=== PATIENT | female | born 1950 | race African-American/Black ===

== ENCOUNTER 2024-03-22 18:38 | Inpatient (IN) | payer MEDICARE, OTHER ==
[2024-03-22 20:54] LABS: BASO % 0.6 % (0-2.0); EOS % 2.3 % (0-4.5); HEMATOCRIT 24.1 % (32.4-45.2); HEMOGLOBIN 7.9 GM/dL (10.7-15.3); MCH 26.8 pg (25.7-33.7); MCHC 32.6 g/dl (32.0-36.0); MEAN CELL VOLUME 82.3 fl (80-96); MEAN PLT VOLUME 7.4 fl (7.5-11.1); NEUT % 75.1 % (42.8-82.8); PLATELET COUNT 531 10^3/uL (134-434); RBC 2.93 M/mm3 (3.60-5.2); RDW 18.4 % (11.6-15.6); WHITE BLOOD COUNT 9.9 K/mm3 (4.0-10.0)
[2024-03-22 21:03] LABS: INR 1.08 (0.83-1.09); PROTHROMBIN TIME (PATIENT) 12.4 SEC (9.7-13.0)
[2024-03-22 21:13] LABS: BLOOD UREA NITROGEN 69.1 mg/dL (7-18); CALCIUM 9.6 mg/dL (8.5-10.1)
[2024-03-22 21:14] LABS: ALBUMIN 1.4 g/dl (3.4-5.0); MAGNESIUM 2.4 mg/dL (1.8-2.4)
[2024-03-22 21:17] LABS: CREATININE 2.1 mg/dL (0.55-1.3)
[2024-03-22 21:18] LABS: BILIRUBIN,TOTAL 0.3 mg/dL (0.2-1); TOT PROT 6.2 g/dl (6.4-8.2)
[2024-03-22 22:21] LABS: EPI CELLS 16 /uL (0-25.1); HYALINE CASTS 1 /uL (0-3.1); URINE APPEARANCE TURBID; URINE BACTERIA 2701 /uL (0-1359); URINE BILIRUBIN NEGATIVE (NEGATIVE); URINE COLOR DK YELLOW; URINE GLUCOSE (UA) NEGATIVE (NEGATIVE); URINE KETONE NEGATIVE (NEGATIVE); URINE LEUK ESTERASE 3+ (NEGATIVE); URINE NITRITE NEGATIVE (NEGATIVE); URINE PROTEIN 1+ (NEGATIVE); URINE RBC 65 /uL (0-23.9); URINE UROBILINOGEN 0.2 mg/dL (0.2-1.0); URINE WBC 7217 /uL (0-25.8)
[2024-03-22 23:43] LABS: URINE CRYSTALS MODERATE /hpf; YEAST NONE SEEN (NEGATIVE)
[2024-03-23 06:17] LABS: BASO % 0.4 % (0-2.0); EOS % 2.1 % (0-4.5); HEMATOCRIT 25.1 % (32.4-45.2); HEMOGLOBIN 7.9 GM/dL (10.7-15.3); LYMPH % 10.2 % (8-40); MCH 25.7 pg (25.7-33.7); MCHC 31.4 g/dl (32.0-36.0); MEAN PLT VOLUME 7.6 fl (7.5-11.1); MONO % 10.8 % (3.8-10.2); NEUT % 76.5 % (42.8-82.8); PLATELET COUNT 597 10^3/uL (134-434); RBC 3.06 M/mm3 (3.60-5.2); RDW 18.3 % (11.6-15.6); WHITE BLOOD COUNT 11.2 K/mm3 (4.0-10.0)
[2024-03-23] MEDS ORDERED: ALBUTEROL SO4 2.5/IPRATROPIUM 0.5 INH SOL 3 ML VIAL.NEB. NEB PRN (06:29)
[2024-03-23 06:38] LABS: BLOOD UREA NITROGEN 69.6 mg/dL (7-18); CALCIUM 9.8 mg/dL (8.5-10.1)
[2024-03-23 06:42] LABS: CREATININE 2.2 mg/dL (0.55-1.3)
[2024-03-23] MEDS ORDERED: MULTIVITAMINS (DAILY MVI) TABLET (FP) ONE (08:38)
[2024-03-23] MEDS ORDERED: METOPROLOL TARTRATE 25 MG TABLET (FP) ONE (08:38)
[2024-03-23] MEDS ORDERED: amLODIPine BESYLATE 10 MG TABLET (FP) ONE (08:38)
[2024-03-23] MEDS ORDERED: ERTAPENEM SODIUM 1 GM VIAL ONE (08:38)
[2024-03-23] MEDS ORDERED: SODIUM CHLORIDE 250 ML IV PRN (11:14)
[2024-03-23] MEDS: MULTIVIT-MINERALS ORAL LIQUID PEG SCH (11:54)
[2024-03-23] MEDS: METOPROLOL TARTRATE 25 MG TABLET (FP) PEG SCH (11:54)
[2024-03-23] MEDS: ERTAPENEM SODIUM 0.5 GM in SODIUM CHLORIDE 50 ML IVPB SCH (11:54)
[2024-03-23] MEDS: amLODIPine BESYLATE 10 MG TABLET (FP) PEG SCH (11:54)
[2024-03-23] MEDS: EPOETIN ALFA-EPBX 3,000 UNIT/ML VIAL IVPUSH ONE (13:26)
[2024-03-23] MEDS: ATORVASTATIN CA 20 MG TABLET (FP) PEG SCH (21:34)
[2024-03-24] MEDS: VANCOMYCIN/WATER FOR INJ (PEG) 1,000 MG/200 ML BAG IVPB ONE (01:07)
[2024-03-24] MEDS: ACETAMINOPHEN 1000 MG/100 ML BAG IVPB ONE (06:49)
[2024-03-24] MEDS: AMINO ACIDS/PROTEIN HYDROLYS 30 ML LIQUID.PKT PEG SCH (17:46)
[2024-03-25 07:50] LABS: BASO % 0.6 % (0-2.0); EOS % 2.1 % (0-4.5); HEMATOCRIT 24.8 % (32.4-45.2); LYMPH % 13.4 % (8-40); MCH 26.6 pg (25.7-33.7); MCHC 32.4 g/dl (32.0-36.0); MEAN PLT VOLUME 7.3 fl (7.5-11.1); MONO % 12.8 % (3.8-10.2); NEUT % 71.1 % (42.8-82.8); PLATELET COUNT 657 10^3/uL (134-434); RBC 3.02 M/mm3 (3.60-5.2); RDW 18.3 % (11.6-15.6); WHITE BLOOD COUNT 9.4 K/mm3 (4.0-10.0)
[2024-03-25 07:55] LABS: POTASSIUM 3.3 mmol/L (3.5-5.1)
[2024-03-25 08:01] LABS: CALCIUM 8.9 mg/dL (8.5-10.1)
[2024-03-25 08:02] LABS: ALBUMIN 1.6 g/dl (3.4-5.0)
[2024-03-25 08:05] LABS: CREATININE 1.6 mg/dL (0.55-1.3)
[2024-03-25 08:07] LABS: BILIRUBIN,TOTAL 0.5 mg/dL (0.2-1); TOT PROT 6.9 g/dl (6.4-8.2)
[2024-03-25 08:12] LABS: BLOOD UREA NITROGEN 37.5 mg/dL (7-18)
[2024-03-25] MEDS: ZINC SULFATE 220 MG CAPSULE (FP) PEG SCH (10:25)
[2024-03-25] MEDS: VANCOMYCIN/WATER FOR INJ (PEG) 1,000 MG/200 ML BAG IVPB ONE (12:05)
[2024-03-25] MEDS: KCL 10 MEQ IVPB 10 MEQ/100 ML INFUS.BAG IVPB SCH (19:13)
[2024-03-26] MEDS ORDERED: SODIUM CHLORIDE 250 ML IV PRN (07:28)
[2024-03-26 08:49] LABS: BASO % 0.5 % (0-2.0); EOS % 2.5 % (0-4.5); HEMATOCRIT 23.2 % (32.4-45.2); HEMOGLOBIN 7.4 GM/dL (10.7-15.3); LYMPH % 10.3 % (8-40); MCH 26.4 pg (25.7-33.7); MEAN CELL VOLUME 82.5 fl (80-96); MEAN PLT VOLUME 7.4 fl (7.5-11.1); MONO % 10.4 % (3.8-10.2); NEUT % 76.3 % (42.8-82.8); PLATELET COUNT 672 10^3/uL (134-434); RBC 2.81 M/mm3 (3.60-5.2); RDW 18.4 % (11.6-15.6)
[2024-03-26 08:54] LABS: POTASSIUM 3.5 mmol/L (3.5-5.1)
[2024-03-26 08:57] LABS: ALBUMIN 1.6 g/dl (3.4-5.0); BLOOD UREA NITROGEN 55.8 mg/dL (7-18); CALCIUM 8.8 mg/dL (8.5-10.1)
[2024-03-26 09:00] LABS: CREATININE 1.9 mg/dL (0.55-1.3)
[2024-03-26 09:02] LABS: BILIRUBIN,TOTAL 0.2 mg/dL (0.2-1); TOT PROT 6.7 g/dl (6.4-8.2)
[2024-03-26] MEDS: EPOETIN ALFA-EPBX 2,000 UNIT/ML VIAL IVPUSH ONE (09:20)
[2024-03-27 08:30] LABS: BASO % 0.4 % (0-2.0); EOS % 1.9 % (0-4.5); HEMATOCRIT 23.2 % (32.4-45.2); HEMOGLOBIN 7.5 GM/dL (10.7-15.3); LYMPH % 12.4 % (8-40); MCH 26.5 pg (25.7-33.7); MCHC 32.5 g/dl (32.0-36.0); MEAN CELL VOLUME 81.4 fl (80-96); MEAN PLT VOLUME 7.2 fl (7.5-11.1); MONO % 12.1 % (3.8-10.2); NEUT % 73.2 % (42.8-82.8); PLATELET COUNT 591 10^3/uL (134-434); RBC 2.85 M/mm3 (3.60-5.2); RDW 18.7 % (11.6-15.6); WHITE BLOOD COUNT 10.1 K/mm3 (4.0-10.0)
[2024-03-27 08:47] LABS: POTASSIUM 3.6 mmol/L (3.5-5.1)
[2024-03-27 08:50] LABS: ALBUMIN 1.6 g/dl (3.4-5.0); BLOOD UREA NITROGEN 36.2 mg/dL (7-18); CALCIUM 8.9 mg/dL (8.5-10.1)
[2024-03-27 08:53] LABS: CREATININE 1.3 mg/dL (0.55-1.3)
[2024-03-27 08:55] LABS: BILIRUBIN,TOTAL 0.3 mg/dL (0.2-1); TOT PROT 6.6 g/dl (6.4-8.2)
[2024-03-27] MEDS: IRON SUCROSE INJECTION 200 MG in SODIUM CHLORIDE 100 ML IVPB ONE (12:30)
[2024-03-28] MEDS ORDERED: SODIUM CHLORIDE 250 ML IV PRN (07:10)
[2024-03-28] MEDS: EPOETIN ALFA-EPBX 3,000 UNIT/ML VIAL IVPUSH ONE (10:14)
[2024-03-28] MEDS: FERROUS SO4 300 MG/5 ML ORAL SOLN UNIT DOSE CUPS GT SCH (12:43)
[2024-03-28 14:42] VITALS: BMI 26.4
[2024-03-29] MEDS: ACETAMINOPHEN 1000 MG/100 ML BAG IVPB ONE (05:00)
[2024-03-29 08:49] LABS: HEMATOCRIT 25.6 % (32.4-45.2); HEMOGLOBIN 8.7 GM/dL (10.7-15.3); MCH 27.4 pg (25.7-33.7); MCHC 33.9 g/dl (32.0-36.0); MEAN CELL VOLUME 80.8 fl (80-96); MEAN PLT VOLUME 7.3 fl (7.5-11.1); PLATELET COUNT 601 10^3/uL (134-434); RBC 3.17 M/mm3 (3.60-5.2); RDW 17.5 % (11.6-15.6); WHITE BLOOD COUNT 10.8 K/mm3 (4.0-10.0)
[2024-03-29 09:09] LABS: CHLORIDE 99 mmol/L (98-107); SODIUM 135 mmol/L (136-145)
[2024-03-29 09:14] LABS: ALBUMIN 1.6 g/dl (3.4-5.0); CALCIUM 8.7 mg/dL (8.5-10.1); CO2 31 mmol/L (21-32)
[2024-03-29 09:16] LABS: CREATININE 1.2 mg/dL (0.55-1.3); SGOT/AST 57 U/L (15-37); SGPT/ALT 37 U/L (13-61)
[2024-03-29 09:19] LABS: BILIRUBIN,TOTAL 0.4 mg/dL (0.2-1); TOT PROT 6.6 g/dl (6.4-8.2)
[2024-03-29 09:20] LABS: ALK PHOS 308 U/L (45-117)
[2024-03-29 09:23] LABS: ANION GAP 6 mmol/L (4-13); POTASSIUM 2.9 mmol/L (3.5-5.1)
[2024-03-29] MEDS: POTASSIUM CHLORIDE ORAL LIQUID 20 MEQ/15 ML PO ONE ×2 (10:29→10:32)
[2024-03-30] MEDS ORDERED: SODIUM CHLORIDE 250 ML IV PRN (08:38)
[2024-03-30] MEDS: EPOETIN ALFA-EPBX 3,000 UNIT/ML VIAL IVPUSH ONE (09:56)
[2024-03-30 22:16] VITALS: RESP 18
[2024-03-31 07:00] VITALS: BP 123/64; PULSE 102; TEMP 99.7
[2024-03-31 08:16] LABS: HEMATOCRIT 25.2 % (32.4-45.2); HEMOGLOBIN 8.4 GM/dL (10.7-15.3); MCH 27.1 pg (25.7-33.7); MCHC 33.2 g/dl (32.0-36.0); MEAN CELL VOLUME 81.8 fl (80-96); MEAN PLT VOLUME 7.2 fl (7.5-11.1); PLATELET COUNT 550 10^3/uL (134-434); POTASSIUM 3.6 mmol/L (3.5-5.1); RBC 3.08 M/mm3 (3.60-5.2); RDW 18.2 % (11.6-15.6); WHITE BLOOD COUNT 11.5 K/mm3 (4.0-10.0)
[2024-03-31 08:21] LABS: CALCIUM 8.9 mg/dL (8.5-10.1)
[2024-03-31 08:23] LABS: BLOOD UREA NITROGEN 35.4 mg/dL (7-18)
[2024-03-31 08:26] LABS: CREATININE 1.2 mg/dL (0.55-1.3)
== END 2024-03-31 13:03 | DRG 539 ==
LOC: JER 18:38 → JERBED 23:21 → J7W 03-23 15:26
PROVIDERS: ADMIT Internal Medicine; ATTEND Family Medicine
PROC: 5A1D70Z Performance of Urinary Filtration, Intermittent, Less than 6 Hours Per Day (ICD-10-PCS; principal; 2024-03-23)
DX: M46.28 Osteomyelitis of vertebra, sacral and sacrococcygeal region (principal); G93.41 Metabolic encephalopathy; L89.154 Pressure ulcer of sacral region, stage 4; R53.2 Functional quadriplegia; N18.6 End stage renal disease; I12.0 Hypertensive chronic kidney disease with stage 5 chronic kidney disease or end stage renal disease; N39.0 Urinary tract infection, site not specified; I10 Essential (primary) hypertension; I48.91 Unspecified atrial fibrillation; E11.22 Type 2 diabetes mellitus with diabetic chronic kidney disease; Z99.2 Dependence on renal dialysis; F03.90 Unspecified dementia, unspecified severity, without behavioral disturbance, psychotic disturbance, mood disturbance, and anxiety; L89.010 Pressure ulcer of right elbow, unstageable
CPT/HCPCS: 0241U-QW; 36415; 36430; 70450-TC; 71045-TC-FY; 74018-TC-FY; 80048; 80053; 81003; 82962; 83540; 83550; 83735; 84484; 85025; 85027; 85610; 85730; 86704; 86803; 86850; 86900; 86901; 86922; 87040; 87086; 87186; 87340; 87517; 93005; 93010; 99285-25; G0480; J0131; J1756; P9058; Q5106

== ENCOUNTER 2024-04-05 18:26 | Inpatient (IN) | payer MEDICARE, OTHER ==
[2024-04-05 19:45] LABS: VENOUS BASE EXCESS 9.7 mmol/L (-2-2); VENOUS O2 SATURATION 77.4 % (70-80); VENOUS PCO2 45.3 mmHg (38-52); VENOUS PH 7.493 (7.310-7.410)
[2024-04-05] MEDS ORDERED: ACETAMINOPHEN INJECTION 100 ML IVPB ONE (19:45)
[2024-04-05 19:47] LABS: BASO % 0.4 % (0-2.0); EOS % 1.2 % (0-4.5); HEMATOCRIT 23.1 % (32.4-45.2); HEMOGLOBIN 7.6 GM/dL (10.7-15.3); LYMPH % 9.2 % (8-40); MCH 27.1 pg (25.7-33.7); MEAN PLT VOLUME 7.2 fl (7.5-11.1); MONO % 12.7 % (3.8-10.2); NEUT % 76.5 % (42.8-82.8); PLATELET COUNT 478 10^3/uL (134-434); RBC 2.82 M/mm3 (3.60-5.2); RDW 18.1 % (11.6-15.6); WHITE BLOOD COUNT 13.1 K/mm3 (4.0-10.0)
[2024-04-05 19:54] LABS: INR 1.08 (0.83-1.09); PROTHROMBIN TIME (PATIENT) 12.4 SEC (9.7-13.0)
[2024-04-05] MEDS: ACETAMINOPHEN 1000 MG/100 ML BAG IVPB ONE (19:54)
[2024-04-05] MEDS: SODIUM CHLORIDE 0.9% 500 ML INFUS.BAG IV ONE ×2 (19:54→21:29)
[2024-04-05 19:56] LABS: ACTIVATED PTT 27.5 SECONDS (25.2-36.5)
[2024-04-05] MEDS ORDERED: PIPERACILLIN/TAZOB 4.5 GM 4.5 GM/100 ML BAG IVPB ONE (19:57)
[2024-04-05] MEDS: PIPERACILLIN/TAZOB 4.5 GM 4.5 GM in DEXTROSE 5%-WATER 100 ML IVPB ONE (20:01)
[2024-04-05 20:04] LABS: POTASSIUM 3.4 mmol/L (3.5-5.1)
[2024-04-05 20:06] LABS: CALCIUM 8.8 mg/dL (8.5-10.1)
[2024-04-05 20:07] LABS: ALBUMIN 1.8 g/dl (3.4-5.0); BLOOD UREA NITROGEN 37.1 mg/dL (7-18)
[2024-04-05 20:10] LABS: CREATININE 1.4 mg/dL (0.55-1.3)
[2024-04-05 20:11] LABS: BILIRUBIN,TOTAL 0.4 mg/dL (0.2-1); TOT PROT 6.9 g/dl (6.4-8.2)
[2024-04-05] MEDS ORDERED: AZITHROMYCIN IVPB 500 MG/250 ML BAG IVPB ONE (20:11)
[2024-04-05] MEDS: AZITHROMYCIN IVPB 500 MG in DEXTROSE 5%-WATER - 250 ML IVPB ONE (20:20)
[2024-04-05 20:57] LABS: URINE APPEARANCE TURBID; URINE BILIRUBIN NEGATIVE (NEGATIVE); URINE COLOR DK YELLOW; URINE GLUCOSE (UA) NEGATIVE (NEGATIVE); URINE KETONE NEGATIVE (NEGATIVE); URINE LEUK ESTERASE 3+ (NEGATIVE); URINE NITRITE NEGATIVE (NEGATIVE); URINE PROTEIN 2+ (NEGATIVE)
[2024-04-05] MEDS: LINEZOLID 600 MG PREMIX BAG 600 MG in PREMIX 300 IVPB ONE (21:28)
[2024-04-05] MEDS: VANCOMYCIN 1,000 MG in DEXTROSE 5%-WATER - 250 ML IVPB ONE (21:29)
[2024-04-05 23:06] LABS: EPI CELLS 19.7 /uL (0-25.1); HYALINE CASTS 0.51 /uL (0-3.1); URINE RBC 214.8 /uL (0-23.9); URINE WBC 10888.1 /uL (0-25.8)
[2024-04-05 23:07] LABS: URINE BACTERIA 3521.4 /uL (0-1359)
[2024-04-05 23:08] LABS: URINE CRYSTALS PRESENT /hpf; YEAST NEGATIVE (NEGATIVE)
[2024-04-06] MEDS ORDERED: ALBUTEROL SO4 2.5/IPRATROPIUM 0.5 INH SOL 3 ML VIAL.NEB. NEB PRN (07:28)
[2024-04-06 07:51] LABS: BASO % 0.4 % (0-2.0); EOS % 2.5 % (0-4.5); HEMATOCRIT 23.1 % (32.4-45.2); HEMOGLOBIN 7.3 GM/dL (10.7-15.3); LYMPH % 7.2 % (8-40); MCH 26.2 pg (25.7-33.7); MCHC 31.8 g/dl (32.0-36.0); MEAN CELL VOLUME 82.3 fl (80-96); MEAN PLT VOLUME 7.9 fl (7.5-11.1); NEUT % 78.9 % (42.8-82.8); PLATELET COUNT 444 10^3/uL (134-434); RBC 2.81 M/mm3 (3.60-5.2); RDW 17.8 % (11.6-15.6); WHITE BLOOD COUNT 12.5 K/mm3 (4.0-10.0)
[2024-04-06 08:13] LABS: POTASSIUM 3.4 mmol/L (3.5-5.1)
[2024-04-06 08:19] LABS: BLOOD UREA NITROGEN 38.4 mg/dL (7-18); CALCIUM 8.5 mg/dL (8.5-10.1)
[2024-04-06 08:20] LABS: ALBUMIN 1.6 g/dl (3.4-5.0)
[2024-04-06 08:22] LABS: CREATININE 1.4 mg/dL (0.55-1.3)
[2024-04-06 08:24] LABS: BILIRUBIN,TOTAL 0.5 mg/dL (0.2-1); TOT PROT 6.2 g/dl (6.4-8.2)
[2024-04-06] MEDS: amLODIPine BESYLATE 10 MG TABLET (FP) GT SCH (11:00)
[2024-04-06] MEDS: ZINC SULFATE 220 MG CAPSULE (FP) PEG SCH (11:00)
[2024-04-06] MEDS: MULTIVIT-MINERALS ORAL LIQUID GT SCH (11:00)
[2024-04-06] MEDS: METOPROLOL TARTRATE 25 MG TABLET (FP) GT SCH (11:00)
[2024-04-06] MEDS: FERROUS SO4 300 MG/5 ML ORAL SOLN UNIT DOSE CUPS GT SCH (12:19)
[2024-04-06] MEDS ORDERED: SODIUM CHLORIDE 250 ML IV PRN (14:07)
[2024-04-06] MEDS: EPOETIN ALFA-EPBX 10,000 UNIT/ML VIAL SQ ONE (17:04)
[2024-04-06] MEDS: PIPERACILLIN/TAZOB 2.25 GM 2.25 GM in DEXTROSE 5%-WATER - 50 ML IVPB SCH (18:06)
[2024-04-06] MEDS: LINEZOLID 600 MG PREMIX BAG 600 MG/300 ML BAG IVPB SCH (18:20)
[2024-04-06] MEDS: HEPARIN NA (PORCINE) 5,000 UNITS/ML 1ML VIAL SQ SCH (21:39)
[2024-04-06] MEDS: LYTES/YERBA SANTA 60 ML SPRAY MM SCH (21:39)
[2024-04-06] MEDS: ATORVASTATIN CA 20 MG TABLET (FP) GT SCH (21:39)
[2024-04-06] MEDS: INSULIN ASPART SLIDING SCALE (NOVOLOG) 1 VIAL SQ SCH (22:33)
[2024-04-07] MEDS: VITAMIN B COMP W-C 1 EA TABLET (NEPHRO-VITE) GT SCH (10:15)
[2024-04-07] MEDS: BACITRACIN ZINC 15 GM TUBE TOPICAL OINTMENT TP SCH (22:02)
[2024-04-08 08:10] LABS: POTASSIUM 3.2 mmol/L (3.5-5.1)
[2024-04-08 08:20] LABS: CALCIUM 8.5 mg/dL (8.5-10.1)
[2024-04-08 08:21] LABS: ALBUMIN 1.5 g/dl (3.4-5.0); BLOOD UREA NITROGEN 23.1 mg/dL (7-18)
[2024-04-08 08:24] LABS: CREATININE 1.2 mg/dL (0.55-1.3)
[2024-04-08 08:25] LABS: BILIRUBIN,TOTAL 0.3 mg/dL (0.2-1); TOT PROT 6.1 g/dl (6.4-8.2)
[2024-04-08 08:35] LABS: BASO % 0.7 % (0-2.0); EOS % 5.5 % (0-4.5); HEMATOCRIT 22.1 % (32.4-45.2); HEMOGLOBIN 7.5 GM/dL (10.7-15.3); LYMPH % 10.9 % (8-40); MCH 27.6 pg (25.7-33.7); MCHC 33.9 g/dl (32.0-36.0); MEAN CELL VOLUME 81.2 fl (80-96); MONO % 8.5 % (3.8-10.2); NEUT % 74.4 % (42.8-82.8); PLATELET COUNT 466 10^3/uL (134-434); RBC 2.72 M/mm3 (3.60-5.2); RDW 17.5 % (11.6-15.6); WHITE BLOOD COUNT 9.6 K/mm3 (4.0-10.0)
[2024-04-08] MEDS: POTASSIUM CHLORIDE ORAL LIQUID 20 MEQ/15 ML GT ONE (10:13)
[2024-04-09] MEDS ORDERED: SODIUM CHLORIDE 250 ML IV PRN (08:12)
[2024-04-09 09:02] LABS: HEMATOCRIT 22.5 % (32.4-45.2); HEMOGLOBIN 7.3 GM/dL (10.7-15.3); MCH 26.5 pg (25.7-33.7); MCHC 32.5 g/dl (32.0-36.0); MEAN CELL VOLUME 81.7 fl (80-96); MEAN PLT VOLUME 7.3 fl (7.5-11.1); PLATELET COUNT 530 10^3/uL (134-434); RBC 2.75 M/mm3 (3.60-5.2); WHITE BLOOD COUNT 20.5 K/mm3 (4.0-10.0)
[2024-04-09 09:24] LABS: POTASSIUM 4.1 mmol/L (3.5-5.1)
[2024-04-09 09:26] LABS: ANISOCYTOSIS 3+; MACROCYTOSIS 0
[2024-04-09 09:38] LABS: BLOOD UREA NITROGEN 29.5 mg/dL (7-18)
[2024-04-09 09:39] LABS: ALBUMIN 1.4 g/dl (3.4-5.0); CALCIUM 8.6 mg/dL (8.5-10.1)
[2024-04-09 09:41] LABS: CREATININE 1.4 mg/dL (0.55-1.3)
[2024-04-09 09:42] LABS: BILIRUBIN,TOTAL 0.4 mg/dL (0.2-1)
[2024-04-09] MEDS: EPOETIN ALFA 10,000 UNIT/1 ML VIAL SQ ONE (12:07)
[2024-04-09] MEDS: COLLAGENASE CLOSTRIDIUM HIST. 30 GRAMS TUBE TP SCH (13:07)
[2024-04-09 16:09] LABS: HEMATOCRIT 21.8 % (32.4-45.2); MCH 26.4 pg (25.7-33.7); MCHC 32.2 g/dl (32.0-36.0); MEAN CELL VOLUME 81.9 fl (80-96); PLATELET COUNT 556 10^3/uL (134-434); RBC 2.66 M/mm3 (3.60-5.2); RDW 17.9 % (11.6-15.6)
[2024-04-09 16:57] LABS: ANISOCYTOSIS 1+; MACROCYTOSIS 0; PLATELET ESTIMATE NORMAL
[2024-04-10 07:42] LABS: BASO % 0.3 % (0-2.0); HEMATOCRIT 20.3 % (32.4-45.2); LYMPH % 10.9 % (8-40); MCH 26.8 pg (25.7-33.7); MCHC 32.5 g/dl (32.0-36.0); MEAN CELL VOLUME 82.6 fl (80-96); MEAN PLT VOLUME 7.6 fl (7.5-11.1); MONO % 6.7 % (3.8-10.2); NEUT % 79.1 % (42.8-82.8); PLATELET COUNT 510 10^3/uL (134-434); RBC 2.46 M/mm3 (3.60-5.2); RDW 18.3 % (11.6-15.6); WHITE BLOOD COUNT 12.7 K/mm3 (4.0-10.0)
[2024-04-10 07:48] LABS: POTASSIUM 3.4 mmol/L (3.5-5.1)
[2024-04-10 07:54] LABS: ALBUMIN 1.5 g/dl (3.4-5.0); BLOOD UREA NITROGEN 17.9 mg/dL (7-18); CALCIUM 8.7 mg/dL (8.5-10.1)
[2024-04-10 07:55] LABS: MAGNESIUM 1.9 mg/dL (1.8-2.4)
[2024-04-10 07:57] LABS: CREATININE 1.1 mg/dL (0.55-1.3)
[2024-04-10 07:59] LABS: BILIRUBIN,TOTAL 0.3 mg/dL (0.2-1); HEMOGLOBIN 6.6 GM/dL (10.7-15.3)
[2024-04-10] MEDS: POTASSIUM CHLORIDE ORAL LIQUID 20 MEQ/15 ML GT ONE (09:22)
[2024-04-10 13:42] VITALS: BMI 27.3
[2024-04-10] MEDS ORDERED: ERTAPENEM SODIUM 0.5 GM in SODIUM CHLORIDE 50 ML IVPB SCH (16:30)
[2024-04-10] MEDS: ERTAPENEM SODIUM 0.5 GM in SODIUM CHLORIDE 50 ML IVPB SCH (21:13)
[2024-04-11 08:28] LABS: POTASSIUM 4.3 mmol/L (3.5-5.1)
[2024-04-11 08:36] LABS: ALBUMIN 1.5 g/dl (3.4-5.0); BASO % 0.5 % (0-2.0); CALCIUM 8.9 mg/dL (8.5-10.1); EOS % 5.6 % (0-4.5); HEMATOCRIT 24.7 % (32.4-45.2); HEMOGLOBIN 8.2 GM/dL (10.7-15.3); LYMPH % 10.2 % (8-40); MAGNESIUM 1.9 mg/dL (1.8-2.4); MCH 27.6 pg (25.7-33.7); MCHC 33.3 g/dl (32.0-36.0); MEAN CELL VOLUME 82.9 fl (80-96); MEAN PLT VOLUME 7.4 fl (7.5-11.1); MONO % 8.3 % (3.8-10.2); NEUT % 75.4 % (42.8-82.8); PLATELET COUNT 499 10^3/uL (134-434); RBC 2.98 M/mm3 (3.60-5.2); RDW 17.6 % (11.6-15.6); WHITE BLOOD COUNT 9.9 K/mm3 (4.0-10.0)
[2024-04-11 08:37] LABS: BLOOD UREA NITROGEN 25.4 mg/dL (7-18)
[2024-04-11 08:39] LABS: CREATININE 1.2 mg/dL (0.55-1.3)
[2024-04-11 08:41] LABS: BILIRUBIN,TOTAL 0.3 mg/dL (0.2-1); TOT PROT 6.4 g/dl (6.4-8.2)
[2024-04-11] MEDS ORDERED: SODIUM CHLORIDE 250 ML IV PRN (09:43)
[2024-04-11] MEDS: EPOETIN ALFA-EPBX 10,000 UNIT/ML VIAL IVPUSH ONE (11:17)
[2024-04-11] MEDS ORDERED: EPOETIN ALFA-EPBX 10,000 UNIT/ML VIAL IVPUSH ONE (16:05)
[2024-04-12 09:59] LABS: BASO % 0.7 % (0-2.0); EOS % 5.3 % (0-4.5); HEMATOCRIT 29.3 % (32.4-45.2); HEMOGLOBIN 9.9 GM/dL (10.7-15.3); LYMPH % 14.4 % (8-40); MCH 28.1 pg (25.7-33.7); MCHC 33.9 g/dl (32.0-36.0); MEAN CELL VOLUME 82.8 fl (80-96); MEAN PLT VOLUME 7.6 fl (7.5-11.1); NEUT % 68.6 % (42.8-82.8); PLATELET COUNT 510 10^3/uL (134-434); RBC 3.54 M/mm3 (3.60-5.2); RDW 16.6 % (11.6-15.6); WHITE BLOOD COUNT 9.2 K/mm3 (4.0-10.0)
[2024-04-12 10:14] LABS: POTASSIUM 4.1 mmol/L (3.5-5.1)
[2024-04-12 10:25] LABS: ALBUMIN 1.7 g/dl (3.4-5.0); MAGNESIUM 1.9 mg/dL (1.8-2.4)
[2024-04-12 10:30] LABS: BILIRUBIN,TOTAL 0.5 mg/dL (0.2-1); TOT PROT 6.7 g/dl (6.4-8.2)
[2024-04-12] MEDS ORDERED: SODIUM CHLORIDE 250 ML IV PRN (17:01)
[2024-04-13 09:18] LABS: BASO % 0.6 % (0-2.0); EOS % 4.2 % (0-4.5); HEMATOCRIT 30.4 % (32.4-45.2); HEMOGLOBIN 10.3 GM/dL (10.7-15.3); LYMPH % 11.8 % (8-40); MCH 28.3 pg (25.7-33.7); MCHC 33.9 g/dl (32.0-36.0); MEAN CELL VOLUME 83.6 fl (80-96); MEAN PLT VOLUME 7.4 fl (7.5-11.1); MONO % 10.3 % (3.8-10.2); NEUT % 73.1 % (42.8-82.8); PLATELET COUNT 517 10^3/uL (134-434); RBC 3.64 M/mm3 (3.60-5.2); RDW 17.2 % (11.6-15.6); WHITE BLOOD COUNT 9.2 K/mm3 (4.0-10.0)
[2024-04-13 09:27] LABS: POTASSIUM 4.1 mmol/L (3.5-5.1)
[2024-04-13 09:30] LABS: ALBUMIN 1.7 g/dl (3.4-5.0); BLOOD UREA NITROGEN 25.9 mg/dL (7-18)
[2024-04-13 09:33] LABS: CREATININE 1.2 mg/dL (0.55-1.3)
[2024-04-13 09:35] LABS: BILIRUBIN,TOTAL 0.4 mg/dL (0.2-1); TOT PROT 6.8 g/dl (6.4-8.2)
[2024-04-13] MEDS: EPOETIN ALFA-EPBX 10,000 UNIT/ML VIAL IVPUSH ONE (09:40)
[2024-04-13 09:55] LABS: HEMATOCRIT 29.4 % (32.4-45.2); HEMOGLOBIN 9.8 GM/dL (10.7-15.3); MCH 27.7 pg (25.7-33.7); MCHC 33.3 g/dl (32.0-36.0); MEAN CELL VOLUME 83.1 fl (80-96); MEAN PLT VOLUME 7.1 fl (7.5-11.1); PLATELET COUNT 518 10^3/uL (134-434); RBC 3.54 M/mm3 (3.60-5.2); RDW 17.1 % (11.6-15.6); WHITE BLOOD COUNT 10.5 K/mm3 (4.0-10.0)
[2024-04-13 10:19] LABS: CALCIUM 9.2 mg/dL (8.5-10.1)
[2024-04-13 10:23] LABS: CREATININE 1.1 mg/dL (0.55-1.3)
[2024-04-15] MEDS: ACETAMINOPHEN 650 MG/20.3 ML ORAL SOLUTION (CUPS) GT PRN (10:56)
[2024-04-15 16:07] LABS: BASO % 0.3 % (0-2.0); EOS % 2.9 % (0-4.5); HEMATOCRIT 30.2 % (32.4-45.2); LYMPH % 12.1 % (8-40); MCH 27.8 pg (25.7-33.7); MCHC 33.1 g/dl (32.0-36.0); MEAN CELL VOLUME 83.8 fl (80-96); MEAN PLT VOLUME 6.9 fl (7.5-11.1); MONO % 15.1 % (3.8-10.2); NEUT % 69.6 % (42.8-82.8); PLATELET COUNT 442 10^3/uL (134-434); RDW 17.5 % (11.6-15.6); WHITE BLOOD COUNT 10.1 K/mm3 (4.0-10.0)
[2024-04-15] MEDS: PIPERACILLIN/TAZOB 3.375 GM 3.375 GM in DEXTROSE 5%-WATER - 50 ML IVPB SCH (16:57)
[2024-04-16 09:27] LABS: BASO % 0.6 % (0-2.0); EOS % 3.4 % (0-4.5); HEMATOCRIT 27.3 % (32.4-45.2); LYMPH % 10.8 % (8-40); MCHC 33.1 g/dl (32.0-36.0); MEAN CELL VOLUME 84.7 fl (80-96); MEAN PLT VOLUME 7.1 fl (7.5-11.1); MONO % 12.9 % (3.8-10.2); NEUT % 72.3 % (42.8-82.8); PLATELET COUNT 461 10^3/uL (134-434); RBC 3.22 M/mm3 (3.60-5.2); RDW 17.7 % (11.6-15.6); WHITE BLOOD COUNT 11.1 K/mm3 (4.0-10.0)
[2024-04-16] MEDS: PIPERACILLIN/TAZOB 3.375 GM 3.375 GM in DEXTROSE 5%-WATER - 50 ML IVPB SCH (11:06)
[2024-04-16] MEDS ORDERED: SODIUM CHLORIDE 250 ML IV PRN (13:52)
[2024-04-16 15:51] LABS: ALBUMIN 1.6 g/dl (3.4-5.0)
[2024-04-16 15:54] LABS: CREATININE 1.2 mg/dL (0.55-1.3)
[2024-04-16 15:55] LABS: BILIRUBIN,TOTAL 0.3 mg/dL (0.2-1); TOT PROT 6.3 g/dl (6.4-8.2)
[2024-04-16] MEDS: ALBUMIN HUMAN 25% 12.5 GM/50 ML VIAL IV SCH (17:08)
[2024-04-16] MEDS: EPOETIN ALFA-EPBX 10,000 UNIT/ML VIAL SQ ONE (17:40)
[2024-04-16] MEDS: HEPARIN NA (PORCINE) 5,000 UNITS/ML 1ML VIAL SQ SCH (21:29)
[2024-04-18] MEDS ORDERED: SODIUM CHLORIDE 250 ML IV PRN (13:14)
[2024-04-18 13:50] LABS: HEMATOCRIT 26.7 % (32.4-45.2); HEMOGLOBIN 8.7 GM/dL (10.7-15.3); MCH 27.2 pg (25.7-33.7); MCHC 32.6 g/dl (32.0-36.0); MEAN CELL VOLUME 83.6 fl (80-96); MEAN PLT VOLUME 7.1 fl (7.5-11.1); PLATELET COUNT 467 10^3/uL (134-434); RBC 3.19 M/mm3 (3.60-5.2); WHITE BLOOD COUNT 12.4 K/mm3 (4.0-10.0)
[2024-04-18 14:06] LABS: POTASSIUM 3.4 mmol/L (3.5-5.1)
[2024-04-18 14:08] LABS: BLOOD UREA NITROGEN 24.2 mg/dL (7-18); CALCIUM 9.5 mg/dL (8.5-10.1)
[2024-04-18] MEDS: EPOETIN ALFA-EPBX 10,000 UNIT/ML VIAL IVPUSH ONE (15:12)
[2024-04-18] MEDS: POTASSIUM CHLORIDE ORAL LIQUID 20 MEQ/15 ML GT ONE (16:18)
[2024-04-19] MEDS: FUROSEMIDE 40 MG/4 ML INJECTABLE VIAL IVPUSH ONE (10:50)
[2024-04-19] MEDS: PIPERACILLIN/TAZOB 2.25 GM 2.25 GM in DEXTROSE 5%-WATER - 50 ML IVPB ONE (10:51)
[2024-04-19] MEDS ORDERED: ERTAPENEM SODIUM 1 GM in SODIUM CHLORIDE 50 ML IVPB ONE (11:00)
[2024-04-19] MEDS ORDERED: ALBUTEROL SO4 2.5/IPRATROPIUM 0.5 INH SOL 3 ML VIAL.NEB. NEB PRN (11:44)
[2024-04-19 12:24] LABS: HEMATOCRIT 27.6 % (32.4-45.2); MCH 27.6 pg (25.7-33.7); MCHC 32.7 g/dl (32.0-36.0); MEAN CELL VOLUME 84.6 fl (80-96); MEAN PLT VOLUME 7.6 fl (7.5-11.1); PLATELET COUNT 522 10^3/uL (134-434); RBC 3.26 M/mm3 (3.60-5.2); RDW 18.5 % (11.6-15.6); WHITE BLOOD COUNT 22.8 K/mm3 (4.0-10.0)
[2024-04-19 12:53] LABS: POTASSIUM 4.4 mmol/L (3.5-5.1)
[2024-04-19 13:02] LABS: ANISOCYTOSIS 3+; MACROCYTOSIS 0
[2024-04-19 13:06] LABS: CALCIUM 9.6 mg/dL (8.5-10.1)
[2024-04-19 13:07] LABS: ALBUMIN 1.7 g/dl (3.4-5.0)
[2024-04-19 13:09] LABS: CREATININE 1.3 mg/dL (0.55-1.3)
[2024-04-19 13:10] LABS: BILIRUBIN,TOTAL 0.4 mg/dL (0.2-1); BLOOD UREA NITROGEN 23.8 mg/dL (7-18)
[2024-04-19 13:11] LABS: TOT PROT 6.6 g/dl (6.4-8.2)
[2024-04-19] MEDS: ALBUTEROL SO4 2.5/IPRATROPIUM 0.5 INH SOL 3 ML VIAL.NEB. NEB SCH (15:44)
[2024-04-19] MEDS: PIPERACILLIN/TAZOB 2.25 GM 2.25 GM in DEXTROSE 5%-WATER - 50 ML IVPB SCH (16:56)
[2024-04-20] MEDS ORDERED: SODIUM CHLORIDE 250 ML IV PRN (08:52)
[2024-04-20] MEDS: EPOETIN ALFA-EPBX 10,000 UNIT/ML VIAL SQ ONE (09:17)
[2024-04-20 09:29] LABS: HEMATOCRIT 26.7 % (32.4-45.2); HEMOGLOBIN 8.7 GM/dL (10.7-15.3); MCH 27.7 pg (25.7-33.7); MCHC 32.6 g/dl (32.0-36.0); MEAN CELL VOLUME 85.1 fl (80-96); MEAN PLT VOLUME 7.7 fl (7.5-11.1); PLATELET COUNT 480 10^3/uL (134-434); RBC 3.14 M/mm3 (3.60-5.2); RDW 18.2 % (11.6-15.6); WHITE BLOOD COUNT 17.8 K/mm3 (4.0-10.0)
[2024-04-20 09:51] LABS: POTASSIUM 4.2 mmol/L (3.5-5.1)
[2024-04-20 10:03] LABS: ALBUMIN 1.7 g/dl (3.4-5.0); CALCIUM 9.7 mg/dL (8.5-10.1)
[2024-04-20 10:07] LABS: CREATININE 1.3 mg/dL (0.55-1.3)
[2024-04-20 10:08] LABS: BILIRUBIN,TOTAL 0.3 mg/dL (0.2-1); TOT PROT 6.5 g/dl (6.4-8.2)
[2024-04-21 10:41] LABS: BASO % 0.4 % (0-2.0); HEMOGLOBIN 8.5 GM/dL (10.7-15.3); LYMPH % 9.4 % (8-40); MCH 27.6 pg (25.7-33.7); MCHC 32.6 g/dl (32.0-36.0); MEAN CELL VOLUME 84.6 fl (80-96); MEAN PLT VOLUME 7.7 fl (7.5-11.1); MONO % 10.4 % (3.8-10.2); NEUT % 75.8 % (42.8-82.8); PLATELET COUNT 477 10^3/uL (134-434); RBC 3.07 M/mm3 (3.60-5.2); RDW 18.4 % (11.6-15.6); WHITE BLOOD COUNT 12.6 K/mm3 (4.0-10.0)
[2024-04-21] MEDS: METOPROLOL TARTRATE 25 MG TABLET (FP) GT SCH (10:47)
[2024-04-21 10:58] LABS: POTASSIUM 3.7 mmol/L (3.5-5.1)
[2024-04-21 11:00] LABS: ALBUMIN 1.6 g/dl (3.4-5.0); BLOOD UREA NITROGEN 22.4 mg/dL (7-18); CALCIUM 9.1 mg/dL (8.5-10.1)
[2024-04-21 11:03] LABS: CREATININE 1.1 mg/dL (0.55-1.3)
[2024-04-21 11:05] LABS: BILIRUBIN,TOTAL 0.3 mg/dL (0.2-1); TOT PROT 6.5 g/dl (6.4-8.2)
[2024-04-21] MEDS ORDERED: INSULIN ASPART SLIDING SCALE (NOVOLOG) 1 VIAL SQ ONE (19:55)
[2024-04-22 08:22] LABS: BASO % 0.6 % (0-2.0); EOS % 4.9 % (0-4.5); HEMATOCRIT 24.3 % (32.4-45.2); HEMOGLOBIN 7.9 GM/dL (10.7-15.3); MCH 27.7 pg (25.7-33.7); MCHC 32.5 g/dl (32.0-36.0); MEAN CELL VOLUME 85.2 fl (80-96); MEAN PLT VOLUME 7.7 fl (7.5-11.1); MONO % 9.7 % (3.8-10.2); NEUT % 75.8 % (42.8-82.8); PLATELET COUNT 530 10^3/uL (134-434); RBC 2.85 M/mm3 (3.60-5.2); RDW 18.1 % (11.6-15.6); WHITE BLOOD COUNT 12.4 K/mm3 (4.0-10.0)
[2024-04-22 08:31] LABS: POTASSIUM 3.9 mmol/L (3.5-5.1)
[2024-04-22 08:38] LABS: CALCIUM 9.4 mg/dL (8.5-10.1)
[2024-04-22 08:39] LABS: ALBUMIN 1.6 g/dl (3.4-5.0); CREATININE 1.3 mg/dL (0.55-1.3)
[2024-04-22 08:40] LABS: BLOOD UREA NITROGEN 29.9 mg/dL (7-18)
[2024-04-22 08:41] LABS: BILIRUBIN,TOTAL 0.3 mg/dL (0.2-1); TOT PROT 6.3 g/dl (6.4-8.2)
[2024-04-22] MEDS ORDERED: INSULIN ASPART SLIDING SCALE (NOVOLOG) 1 VIAL SQ ONE (17:12)
[2024-04-23 08:48] LABS: BASO % 0.4 % (0-2.0); EOS % 5.8 % (0-4.5); HEMATOCRIT 26.8 % (32.4-45.2); HEMOGLOBIN 8.7 GM/dL (10.7-15.3); LYMPH % 7.5 % (8-40); MCH 27.6 pg (25.7-33.7); MCHC 32.6 g/dl (32.0-36.0); MEAN CELL VOLUME 84.9 fl (80-96); MEAN PLT VOLUME 7.8 fl (7.5-11.1); MONO % 8.9 % (3.8-10.2); NEUT % 77.4 % (42.8-82.8); PLATELET COUNT 552 10^3/uL (134-434); RBC 3.16 M/mm3 (3.60-5.2); WHITE BLOOD COUNT 11.9 K/mm3 (4.0-10.0)
[2024-04-23] MEDS ORDERED: SODIUM CHLORIDE 250 ML IV PRN (09:07)
[2024-04-23 09:16] LABS: ALBUMIN 1.7 g/dl (3.4-5.0); BLOOD UREA NITROGEN 38.4 mg/dL (7-18); CALCIUM 9.7 mg/dL (8.5-10.1)
[2024-04-23 09:19] LABS: CREATININE 1.4 mg/dL (0.55-1.3)
[2024-04-23 09:21] LABS: BILIRUBIN,TOTAL 0.4 mg/dL (0.2-1); TOT PROT 6.4 g/dl (6.4-8.2)
[2024-04-23 10:07] LABS: POTASSIUM 4.1 mmol/L (3.5-5.1)
[2024-04-23 10:11] LABS: CALCIUM 9.6 mg/dL (8.5-10.1)
[2024-04-23 10:12] LABS: BLOOD UREA NITROGEN 35.5 mg/dL (7-18)
[2024-04-23 10:15] LABS: CREATININE 1.4 mg/dL (0.55-1.3)
[2024-04-23 10:17] LABS: HEMATOCRIT 26.2 % (32.4-45.2); HEMOGLOBIN 8.4 GM/dL (10.7-15.3); MCH 27.2 pg (25.7-33.7); MCHC 32.1 g/dl (32.0-36.0); MEAN CELL VOLUME 84.7 fl (80-96); MEAN PLT VOLUME 7.8 fl (7.5-11.1); PLATELET COUNT 605 10^3/uL (134-434); RBC 3.09 M/mm3 (3.60-5.2); RDW 18.8 % (11.6-15.6); WHITE BLOOD COUNT 13.7 K/mm3 (4.0-10.0)
[2024-04-23] MEDS: EPOETIN ALFA-EPBX 10,000 UNIT/ML VIAL SQ ONE (11:01)
[2024-04-24] MEDS ORDERED: AMINO ACIDS/PROTEIN HYDROLYS 30 ML LIQUID.PKT PO SCH (08:00)
[2024-04-24 08:59] LABS: BASO % 0.6 % (0-2.0); EOS % 4.9 % (0-4.5); HEMATOCRIT 25.9 % (32.4-45.2); HEMOGLOBIN 8.4 GM/dL (10.7-15.3); MCH 27.6 pg (25.7-33.7); MCHC 32.4 g/dl (32.0-36.0); MEAN CELL VOLUME 85.2 fl (80-96); MEAN PLT VOLUME 7.6 fl (7.5-11.1); MONO % 10.7 % (3.8-10.2); NEUT % 71.8 % (42.8-82.8); PLATELET COUNT 644 10^3/uL (134-434); RBC 3.04 M/mm3 (3.60-5.2); RDW 18.9 % (11.6-15.6); WHITE BLOOD COUNT 13.2 K/mm3 (4.0-10.0)
[2024-04-24 09:24] LABS: ALBUMIN 1.7 g/dl (3.4-5.0); CALCIUM 9.5 mg/dL (8.5-10.1)
[2024-04-24 09:28] LABS: CREATININE 1.2 mg/dL (0.55-1.3)
[2024-04-24 09:29] LABS: BILIRUBIN,TOTAL 0.3 mg/dL (0.2-1); TOT PROT 6.5 g/dl (6.4-8.2)
[2024-04-24] MEDS: AMINO ACIDS/PROTEIN HYDROLYS 30 ML LIQUID.PKT GT SCH (09:46)
[2024-04-24] MEDS ORDERED: INSULIN ASPART SLIDING SCALE (NOVOLOG) 1 VIAL SQ ONE (12:36)
[2024-04-24] MEDS ORDERED: SODIUM CHLORIDE 250 ML IV PRN (15:47)
[2024-04-25 08:45] LABS: BASO % 0.3 % (0-2.0); EOS % 3.5 % (0-4.5); HEMATOCRIT 26.2 % (32.4-45.2); HEMOGLOBIN 8.6 GM/dL (10.7-15.3); LYMPH % 7.3 % (8-40); MCH 27.7 pg (25.7-33.7); MCHC 32.7 g/dl (32.0-36.0); MEAN CELL VOLUME 84.7 fl (80-96); MEAN PLT VOLUME 7.7 fl (7.5-11.1); MONO % 9.9 % (3.8-10.2); PLATELET COUNT 703 10^3/uL (134-434); RDW 19.2 % (11.6-15.6)
[2024-04-25 08:52] LABS: POTASSIUM 3.8 mmol/L (3.5-5.1)
[2024-04-25 09:00] LABS: ALBUMIN 1.8 g/dl (3.4-5.0); BLOOD UREA NITROGEN 38.2 mg/dL (7-18)
[2024-04-25 09:01] LABS: MAGNESIUM 2.3 mg/dL (1.8-2.4)
[2024-04-25 09:04] LABS: BILIRUBIN,TOTAL 0.3 mg/dL (0.2-1); CREATININE 1.5 mg/dL (0.55-1.3)
[2024-04-25] MEDS: EPOETIN ALFA-EPBX 10,000 UNIT/ML VIAL IVPUSH ONE (11:25)
[2024-04-26 08:02] LABS: POTASSIUM 3.6 mmol/L (3.5-5.1)
[2024-04-26 08:11] LABS: ALBUMIN 1.5 g/dl (3.4-5.0); BASO % 0.5 % (0-2.0); BLOOD UREA NITROGEN 30.5 mg/dL (7-18); CALCIUM 9.1 mg/dL (8.5-10.1); EOS % 4.5 % (0-4.5); HEMATOCRIT 25.8 % (32.4-45.2); HEMOGLOBIN 8.5 GM/dL (10.7-15.3); LYMPH % 10.8 % (8-40); MCH 27.8 pg (25.7-33.7); MCHC 32.8 g/dl (32.0-36.0); MEAN CELL VOLUME 84.7 fl (80-96); MEAN PLT VOLUME 7.6 fl (7.5-11.1); MONO % 11.9 % (3.8-10.2); NEUT % 72.3 % (42.8-82.8); PLATELET COUNT 619 10^3/uL (134-434); RBC 3.05 M/mm3 (3.60-5.2); RDW 19.2 % (11.6-15.6); WHITE BLOOD COUNT 12.7 K/mm3 (4.0-10.0)
[2024-04-26 08:12] LABS: MAGNESIUM 2.1 mg/dL (1.8-2.4)
[2024-04-26 08:14] LABS: CREATININE 1.4 mg/dL (0.55-1.3)
[2024-04-26 08:16] LABS: TOT PROT 6.2 g/dl (6.4-8.2)
[2024-04-26 08:17] LABS: BILIRUBIN,TOTAL 0.4 mg/dL (0.2-1)
[2024-04-26] MEDS ORDERED: INSULIN ASPART SLIDING SCALE (NOVOLOG) 1 VIAL SQ ONE (11:28)
[2024-04-27] MEDS ORDERED: SODIUM CHLORIDE 250 ML IV PRN (10:00)
[2024-04-27 10:15] LABS: BASO % 0.4 % (0-2.0); EOS % 3.6 % (0-4.5); HEMATOCRIT 24.9 % (32.4-45.2); HEMOGLOBIN 8.2 GM/dL (10.7-15.3); LYMPH % 8.5 % (8-40); MCH 27.4 pg (25.7-33.7); MCHC 32.7 g/dl (32.0-36.0); MEAN CELL VOLUME 83.9 fl (80-96); MEAN PLT VOLUME 7.6 fl (7.5-11.1); MONO % 4.1 % (3.8-10.2); NEUT % 83.4 % (42.8-82.8); PLATELET COUNT 695 10^3/uL (134-434); RBC 2.97 M/mm3 (3.60-5.2); RDW 19.5 % (11.6-15.6); WHITE BLOOD COUNT 11.2 K/mm3 (4.0-10.0)
[2024-04-27 10:32] LABS: POTASSIUM 3.7 mmol/L (3.5-5.1)
[2024-04-27 10:35] LABS: CALCIUM 9.1 mg/dL (8.5-10.1)
[2024-04-27 10:36] LABS: ALBUMIN 1.5 g/dl (3.4-5.0)
[2024-04-27 10:39] LABS: CREATININE 1.4 mg/dL (0.55-1.3)
[2024-04-27 10:40] LABS: BILIRUBIN,TOTAL 0.3 mg/dL (0.2-1)
[2024-04-27 10:41] LABS: TOT PROT 6.4 g/dl (6.4-8.2)
[2024-04-27] MEDS: EPOETIN ALFA-EPBX 10,000 UNIT/ML VIAL IVPUSH ONE (10:59)
[2024-04-27] MEDS: HEPARIN NA (PORCINE) 5,000 UNITS/ML 1ML VIAL SQ SCH (12:17)
[2024-04-28] MEDS: ALBUTEROL SO4 2.5/IPRATROPIUM 0.5 INH SOL 3 ML VIAL.NEB. NEB PRN (19:12)
[2024-04-29 08:26] LABS: BASO % 0.3 % (0-2.0); EOS % 5.4 % (0-4.5); HEMATOCRIT 25.8 % (32.4-45.2); HEMOGLOBIN 8.4 GM/dL (10.7-15.3); LYMPH % 8.2 % (8-40); MCH 27.4 pg (25.7-33.7); MCHC 32.5 g/dl (32.0-36.0); MEAN CELL VOLUME 84.2 fl (80-96); MEAN PLT VOLUME 7.5 fl (7.5-11.1); MONO % 7.9 % (3.8-10.2); NEUT % 78.2 % (42.8-82.8); PLATELET COUNT 677 10^3/uL (134-434); POTASSIUM 3.3 mmol/L (3.5-5.1); RBC 3.06 M/mm3 (3.60-5.2); RDW 19.3 % (11.6-15.6); WHITE BLOOD COUNT 12.2 K/mm3 (4.0-10.0)
[2024-04-29 08:39] LABS: CALCIUM 9.7 mg/dL (8.5-10.1)
[2024-04-29 08:40] LABS: ALBUMIN 1.5 g/dl (3.4-5.0); BLOOD UREA NITROGEN 38.6 mg/dL (7-18)
[2024-04-29 08:42] LABS: PHOSPHOROUS 2.1 mg/dL (2.5-4.9)
[2024-04-29 08:43] LABS: CREATININE 1.5 mg/dL (0.55-1.3)
[2024-04-29 08:44] LABS: BILIRUBIN,TOTAL 0.2 mg/dL (0.2-1); TOT PROT 6.2 g/dl (6.4-8.2)
[2024-04-29] MEDS: POTASSIUM CHLORIDE ORAL LIQUID 20 MEQ/15 ML GT ONE (13:04)
[2024-04-30 07:49] LABS: HEMATOCRIT 26.6 % (32.4-45.2); HEMOGLOBIN 8.6 GM/dL (10.7-15.3); MCH 27.2 pg (25.7-33.7); MCHC 32.2 g/dl (32.0-36.0); MEAN CELL VOLUME 84.3 fl (80-96); MEAN PLT VOLUME 7.7 fl (7.5-11.1); PLATELET COUNT 736 10^3/uL (134-434); RBC 3.15 M/mm3 (3.60-5.2); RDW 19.3 % (11.6-15.6); WHITE BLOOD COUNT 15.2 K/mm3 (4.0-10.0)
[2024-04-30 08:11] LABS: CALCIUM 9.5 mg/dL (8.5-10.1)
[2024-04-30 08:12] LABS: BLOOD UREA NITROGEN 48.7 mg/dL (7-18); MAGNESIUM 2.2 mg/dL (1.8-2.4)
[2024-04-30 08:15] LABS: CREATININE 1.6 mg/dL (0.55-1.3); PHOSPHOROUS 2.2 mg/dL (2.5-4.9)
[2024-04-30] MEDS: EPOETIN ALFA-EPBX 10,000 UNIT/ML VIAL IVPUSH ONE (11:01)
[2024-05-01] MEDS: FUROSEMIDE 40 MG/4 ML INJECTABLE VIAL IVPUSH ONE ×2 (11:05→17:19)
[2024-05-01] MEDS: SCOPOLAMINE HYDROBROMIDE 1 PATCH PATCH.TD72 TD SCH (11:06)
[2024-05-02] MEDS ORDERED: INSULIN ASPART SLIDING SCALE (NOVOLOG) 1 VIAL SQ ONE (07:21)
[2024-05-02] MEDS ORDERED: SODIUM CHLORIDE 250 ML IV PRN (08:11)
[2024-05-02] MEDS: EPOETIN ALFA-EPBX 10,000 UNIT/ML VIAL SQ ONE (10:38)
[2024-05-04] MEDS ORDERED: SODIUM CHLORIDE 250 ML IV PRN (08:06)
[2024-05-04] MEDS: HEPARIN NA (PORCINE) 5,000 UNITS/ML 1ML VIAL IVPUSH ONE (08:55)
[2024-05-04 09:02] LABS: HEMATOCRIT 25.2 % (32.4-45.2); HEMOGLOBIN 8.2 GM/dL (10.7-15.3); MCH 27.2 pg (25.7-33.7); MCHC 32.6 g/dl (32.0-36.0); MEAN CELL VOLUME 83.5 fl (80-96); MEAN PLT VOLUME 7.5 fl (7.5-11.1); PLATELET COUNT 681 10^3/uL (134-434); RBC 3.02 M/mm3 (3.60-5.2); WHITE BLOOD COUNT 13.5 K/mm3 (4.0-10.0)
[2024-05-04 09:21] LABS: POTASSIUM 3.8 mmol/L (3.5-5.1)
[2024-05-04 09:23] LABS: ALBUMIN 1.7 g/dl (3.4-5.0); BLOOD UREA NITROGEN 60.6 mg/dL (7-18); CALCIUM 9.7 mg/dL (8.5-10.1)
[2024-05-04 09:28] LABS: BILIRUBIN,TOTAL 0.2 mg/dL (0.2-1); TOT PROT 6.7 g/dl (6.4-8.2)
[2024-05-04] MEDS: EPOETIN ALFA-EPBX 10,000 UNIT/ML VIAL IVPUSH ONE (09:43)
[2024-05-07] MEDS: HEPARIN NA (PORCINE) 5,000 UNITS/ML 1ML VIAL IVPUSH ONE (16:20)
[2024-05-07] MEDS ORDERED: SODIUM CHLORIDE 250 ML IV PRN (17:39)
[2024-05-07] MEDS: EPOETIN ALFA-EPBX 10,000 UNIT/ML VIAL IVPUSH ONE (18:15)
[2024-05-08] MEDS ORDERED: INSULIN ASPART SLIDING SCALE (NOVOLOG) 1 VIAL SQ ONE ×2 (07:52→12:31)
[2024-05-08 09:37] LABS: BASO % 0.4 % (0-2.0); EOS % 3.6 % (0-4.5); HEMATOCRIT 26.5 % (32.4-45.2); HEMOGLOBIN 8.5 GM/dL (10.7-15.3); LYMPH % 7.6 % (8-40); MCH 26.6 pg (25.7-33.7); MCHC 31.9 g/dl (32.0-36.0); MEAN CELL VOLUME 83.4 fl (80-96); MEAN PLT VOLUME 7.9 fl (7.5-11.1); NEUT % 79.4 % (42.8-82.8); PLATELET COUNT 674 10^3/uL (134-434); RBC 3.18 M/mm3 (3.60-5.2); RDW 19.5 % (11.6-15.6)
[2024-05-08 10:04] LABS: ALBUMIN 1.7 g/dl (3.4-5.0); BLOOD UREA NITROGEN 48.1 mg/dL (7-18); CALCIUM 9.4 mg/dL (8.5-10.1)
[2024-05-08 10:06] LABS: CREATININE 2.1 mg/dL (0.55-1.3)
[2024-05-08 10:09] LABS: BILIRUBIN,TOTAL 0.3 mg/dL (0.2-1)
[2024-05-08] MEDS ORDERED: SODIUM CHLORIDE 250 ML IV PRN (11:12)
[2024-05-09 15:42] LABS: HEMATOCRIT 25.7 % (32.4-45.2); HEMOGLOBIN 8.3 GM/dL (10.7-15.3); MCH 26.7 pg (25.7-33.7); MCHC 32.2 g/dl (32.0-36.0); MEAN CELL VOLUME 83.1 fl (80-96); PLATELET COUNT 665 10^3/uL (134-434); RBC 3.09 M/mm3 (3.60-5.2); WHITE BLOOD COUNT 16.5 K/mm3 (4.0-10.0)
[2024-05-09] MEDS: HEPARIN NA (PORCINE) 5,000 UNITS/ML 1ML VIAL IVPUSH ONE (15:42)
[2024-05-09 16:03] LABS: POTASSIUM 3.8 mmol/L (3.5-5.1)
[2024-05-09 16:05] LABS: BLOOD UREA NITROGEN 79.6 mg/dL (7-18)
[2024-05-09 16:09] LABS: CREATININE 2.9 mg/dL (0.55-1.3)
[2024-05-09] MEDS: EPOETIN ALFA-EPBX 10,000 UNIT/ML VIAL SQ ONE (17:36)
[2024-05-10] MEDS ORDERED: SODIUM CHLORIDE 250 ML IV PRN (15:26)
[2024-05-11 13:16] LABS: HEMATOCRIT 24.4 % (32.4-45.2); HEMOGLOBIN 7.7 GM/dL (10.7-15.3); MCH 26.6 pg (25.7-33.7); MCHC 31.6 g/dl (32.0-36.0); MEAN CELL VOLUME 84.2 fl (80-96); MEAN PLT VOLUME 7.9 fl (7.5-11.1); PLATELET COUNT 618 10^3/uL (134-434); WHITE BLOOD COUNT 18.3 K/mm3 (4.0-10.0)
[2024-05-11] MEDS: EPOETIN ALFA-EPBX 10,000 UNIT/ML VIAL IVPUSH ONE (14:29)
[2024-05-11 15:12] LABS: ALBUMIN 1.6 g/dl (3.4-5.0); BLOOD UREA NITROGEN 80.6 mg/dL (7-18); CALCIUM 10.1 mg/dL (8.5-10.1)
[2024-05-11 15:15] LABS: CREATININE 3.3 mg/dL (0.55-1.3)
[2024-05-11 15:17] LABS: BILIRUBIN,TOTAL 0.4 mg/dL (0.2-1); TOT PROT 6.7 g/dl (6.4-8.2)
[2024-05-12 12:16] LABS: HEMATOCRIT 26.1 % (32.4-45.2); HEMOGLOBIN 8.3 GM/dL (10.7-15.3); MCH 26.5 pg (25.7-33.7); MCHC 31.8 g/dl (32.0-36.0); MEAN CELL VOLUME 83.3 fl (80-96); MEAN PLT VOLUME 8.1 fl (7.5-11.1); PLATELET COUNT 604 10^3/uL (134-434); RBC 3.13 M/mm3 (3.60-5.2); RDW 19.3 % (11.6-15.6); WHITE BLOOD COUNT 16.1 K/mm3 (4.0-10.0)
[2024-05-13] MEDS ORDERED: INSULIN (LEVEMIR) 100 UNITS/ML UNITS SQ ONE (08:13)
[2024-05-14 09:30] LABS: HEMATOCRIT 26.6 % (32.4-45.2); HEMOGLOBIN 8.5 GM/dL (10.7-15.3); MCH 26.6 pg (25.7-33.7); MCHC 31.9 g/dl (32.0-36.0); MEAN CELL VOLUME 83.3 fl (80-96); MEAN PLT VOLUME 8.5 fl (7.5-11.1); PLATELET COUNT 662 10^3/uL (134-434); RBC 3.19 M/mm3 (3.60-5.2); RDW 19.4 % (11.6-15.6); WHITE BLOOD COUNT 20.4 K/mm3 (4.0-10.0)
[2024-05-14 09:47] LABS: CHLORIDE 97 mmol/L (98-107); POTASSIUM 4.4 mmol/L (3.5-5.1); SODIUM 136 mmol/L (136-145)
[2024-05-14] MEDS ORDERED: SODIUM CHLORIDE 250 ML IV PRN (09:52)
[2024-05-14 10:01] LABS: GLUCOSE,RANDOM 304 mg/dL (74-106)
[2024-05-14 10:02] LABS: CALCIUM 10.6 mg/dL (8.5-10.1)
[2024-05-14 10:03] LABS: ALBUMIN 1.6 g/dl (3.4-5.0); ANION GAP 11 mmol/L (4-13); CO2 27 mmol/L (21-32)
[2024-05-14 10:04] LABS: SGOT/AST 73 U/L (15-37)
[2024-05-14 10:06] LABS: ALK PHOS 450 U/L (45-117); BILIRUBIN,TOTAL 0.5 mg/dL (0.2-1); SGPT/ALT 76 U/L (13-61); TOT PROT 7.3 g/dl (6.4-8.2)
[2024-05-14 10:33] LABS: ANISOCYTOSIS 0; MACROCYTOSIS 0
[2024-05-14] MEDS: EPOETIN ALFA-EPBX 3,000 UNIT/ML VIAL IVPUSH ONE (13:14)
[2024-05-15 09:46] LABS: HEMATOCRIT 25.8 % (32.4-45.2); HEMOGLOBIN 7.9 GM/dL (10.7-15.3); MCH 25.9 pg (25.7-33.7); MCHC 30.5 g/dl (32.0-36.0); MEAN CELL VOLUME 84.7 fl (80-96); MEAN PLT VOLUME 8.5 fl (7.5-11.1); PLATELET COUNT 559 10^3/uL (134-434); RBC 3.04 M/mm3 (3.60-5.2); RDW 19.3 % (11.6-15.6); WHITE BLOOD COUNT 21.2 K/mm3 (4.0-10.0)
[2024-05-15 09:59] LABS: POTASSIUM 4.6 mmol/L (3.5-5.1)
[2024-05-15 10:07] LABS: ALBUMIN 1.5 g/dl (3.4-5.0); CALCIUM 10.1 mg/dL (8.5-10.1)
[2024-05-15 10:08] LABS: BLOOD UREA NITROGEN 84.1 mg/dL (7-18)
[2024-05-15 10:09] LABS: CREATININE 3.3 mg/dL (0.55-1.3)
[2024-05-15 10:11] LABS: TOT PROT 7.1 g/dl (6.4-8.2)
[2024-05-15 10:50] LABS: BILIRUBIN,TOTAL 0.3 mg/dL (0.2-1)
[2024-05-15] MEDS ORDERED: INSULIN ASPART SLIDING SCALE (NOVOLOG) 1 VIAL SQ ONE (11:49)
[2024-05-15] MEDS ORDERED: SODIUM CHLORIDE 250 ML IV PRN (13:03)
[2024-05-15 13:09] LABS: ANISOCYTOSIS 2+; MACROCYTOSIS 0
[2024-05-15 13:12] LABS: PLATELET ESTIMATE INCREASED
[2024-05-16] MEDS: HEPARIN NA (PORCINE) 5,000 UNITS/ML 1ML VIAL IVPUSH ONE (08:40)
[2024-05-16 09:40] LABS: HEMATOCRIT 23.6 % (32.4-45.2); HEMOGLOBIN 7.2 GM/dL (10.7-15.3); MCH 25.6 pg (25.7-33.7); MCHC 30.5 g/dl (32.0-36.0); MEAN CELL VOLUME 83.8 fl (80-96); MEAN PLT VOLUME 8.6 fl (7.5-11.1); PLATELET COUNT 581 10^3/uL (134-434); RBC 2.82 M/mm3 (3.60-5.2); RDW 19.3 % (11.6-15.6); WHITE BLOOD COUNT 21.8 K/mm3 (4.0-10.0)
[2024-05-16 10:05] LABS: ANION GAP 12 mmol/L (4-13); CALCIUM 10.5 mg/dL (8.5-10.1); CHLORIDE 98 mmol/L (98-107); CO2 28 mmol/L (21-32); GLUCOSE,RANDOM 377 mg/dL (74-106); POTASSIUM 4.1 mmol/L (3.5-5.1); SODIUM 138 mmol/L (136-145)
[2024-05-16 10:10] LABS: BLOOD UREA NITROGEN 104.4 mg/dL (7-18)
[2024-05-16] MEDS: EPOETIN ALFA-EPBX 10,000 UNIT/ML VIAL IVPUSH ONE (10:40)
[2024-05-17] MEDS: ACETAMINOPHEN 1000 MG/100 ML BAG IVPB ONE ×2 (15:06→17:20)
[2024-05-17] MEDS: VANCOMYCIN/WATER FOR INJ (PEG) 1,000 MG/200 ML BAG IVPB ONE (16:57)
[2024-05-17] MEDS: INSULIN (LEVEMIR) 100 UNITS/ML UNITS SQ ONE (17:17)
[2024-05-17] MEDS: INSULIN ASPART SLIDING SCALE (NOVOLOG) 1 VIAL SQ SCH ×3 (17:18→22:07)
[2024-05-17] MEDS: PIPERACILLIN/TAZOB 2.25 GM 2.25 GM in DEXTROSE 5%-WATER - 50 ML IVPB SCH (18:04)
[2024-05-17] MEDS: INSULIN (LEVEMIR) 100 UNITS/ML UNITS SQ SCH (21:29)
[2024-05-18] MEDS: INSULIN (LEVEMIR) 100 UNITS/ML UNITS SQ SCH (09:10)
[2024-05-18 10:25] LABS: HEMATOCRIT 22.9 % (32.4-45.2); HEMOGLOBIN 7.4 GM/dL (10.7-15.3); MCH 26.7 pg (25.7-33.7); MCHC 32.3 g/dl (32.0-36.0); MEAN CELL VOLUME 82.6 fl (80-96); MEAN PLT VOLUME 9.1 fl (7.5-11.1); PLATELET COUNT 506 10^3/uL (134-434); RBC 2.77 M/mm3 (3.60-5.2); RDW 19.2 % (11.6-15.6); WHITE BLOOD COUNT 25.5 K/mm3 (4.0-10.0)
[2024-05-18 10:54] LABS: POTASSIUM 4.5 mmol/L (3.5-5.1)
[2024-05-18] MEDS ORDERED: INSULIN ASPART SLIDING SCALE (NOVOLOG) 1 VIAL SQ ONE (10:58)
[2024-05-18 10:59] LABS: BLOOD UREA NITROGEN 102.2 mg/dL (7-18); CALCIUM 9.8 mg/dL (8.5-10.1); MAGNESIUM 2.6 mg/dL (1.8-2.4)
[2024-05-18 11:00] LABS: ALBUMIN 1.3 g/dl (3.4-5.0)
[2024-05-18 11:03] LABS: CREATININE 4.1 mg/dL (0.55-1.3)
[2024-05-18 11:04] LABS: BILIRUBIN,TOTAL 1.3 mg/dL (0.2-1); TOT PROT 6.7 g/dl (6.4-8.2)
[2024-05-18 11:15] LABS: ANISOCYTOSIS 1+; MACROCYTOSIS 0; OVALOCYTE 1+; TEAR DROP CELLS 1+
[2024-05-18 11:16] LABS: PLATELET ESTIMATE ADEQUATE
[2024-05-18] MEDS ORDERED: SODIUM CHLORIDE 250 ML IV PRN (14:24)
[2024-05-18] MEDS: HEPARIN NA (PORCINE) 5,000 UNITS/ML 1ML VIAL IVPUSH ONE (15:05)
[2024-05-18] MEDS: EPOETIN ALFA-EPBX 10,000 UNIT/ML VIAL IVPUSH ONE (16:25)
[2024-05-18] MEDS: VANCOMYCIN/WATER FOR INJ (PEG) 1,000 MG/200 ML BAG IVPB ONE (18:56)
[2024-05-18] MEDS: INSULIN ASPART SLIDING SCALE (NOVOLOG) 1 VIAL SQ SCH (18:57)
[2024-05-19] MEDS: ACETAMINOPHEN 1000 MG/100 ML BAG IVPB ONE ×2 (07:30→09:57)
[2024-05-19] MEDS ORDERED: INSULIN ASPART SLIDING SCALE (NOVOLOG) 1 VIAL SQ ONE (08:55)
[2024-05-19] MEDS: SODIUM CHLORIDE 500 ML IV STA (10:16)
[2024-05-19] MEDS: MEROPENEM 1 GM in DEXTROSE 5%-WATER 100 ML IVPB ONE (11:10)
[2024-05-19] MEDS: LINEZOLID 600 MG PREMIX BAG 600 MG/300 ML BAG IVPB SCH ×2 (11:41→23:25)
[2024-05-19 11:51] LABS: ARTERIAL BLD GAS O2 SATURATION 96.5 % (95-98); ARTERIAL BLOOD GAS PO2 77.9 mmHg (80-100); ARTERIAL BLOOD GAS pH 7.488 (7.350-7.450)
[2024-05-19 12:16] LABS: BASO % 0.3 % (0-2.0); EOS % 1.8 % (0-4.5); HEMATOCRIT 21.9 % (32.4-45.2); LYMPH % 9.5 % (8-40); MCHC 31.6 g/dl (32.0-36.0); MEAN CELL VOLUME 82.3 fl (80-96); MEAN PLT VOLUME 9.1 fl (7.5-11.1); MONO % 11.7 % (3.8-10.2); NEUT % 76.7 % (42.8-82.8); PLATELET COUNT 475 10^3/uL (134-434); RBC 2.67 M/mm3 (3.60-5.2); RDW 19.5 % (11.6-15.6); WHITE BLOOD COUNT 16.9 K/mm3 (4.0-10.0)
[2024-05-19 12:24] LABS: POTASSIUM 3.2 mmol/L (3.5-5.1)
[2024-05-19 12:32] LABS: HEMOGLOBIN 6.9 GM/dL (10.7-15.3)
[2024-05-19 12:33] LABS: LACTIC ACID 4.1 mmol/L (0.4-2.0)
[2024-05-19 12:36] LABS: ALBUMIN 1.2 g/dl (3.4-5.0); CALCIUM 8.8 mg/dL (8.5-10.1); MAGNESIUM 2.8 mg/dL (1.8-2.4); PHOSPHOROUS 1.3 mg/dL (2.5-4.9); TOT PROT 5.9 g/dl (6.4-8.2)
[2024-05-19 12:37] LABS: BILIRUBIN,TOTAL 1.4 mg/dL (0.2-1)
[2024-05-19 12:38] LABS: BLOOD UREA NITROGEN 56.9 mg/dL (7-18)
[2024-05-19 12:40] LABS: CREATININE 2.9 mg/dL (0.55-1.3)
[2024-05-19] MEDS ORDERED: NOREPINEPHRINE BITARTRATE 4,000 MCG in DEXTROSE 5%-WATER - 496 ML IV SCH (13:00)
[2024-05-19] MEDS: MUPIROCIN 2% TOPICAL OINTMENT FOR DECOLONIZATION NS SCH (14:05)
[2024-05-19] MEDS: NOREPINEPHRINE BITARTRATE 4,000 MCG in DEXTROSE 5%-WATER - 496 ML IV SCH (14:27)
[2024-05-19 14:42] LABS: LACTIC ACID 2.8 mmol/L (0.4-2.0)
[2024-05-19 15:49] LABS: LACTIC ACID 2.5 mmol/L (0.4-2.0)
[2024-05-19 19:07] LABS: LACTIC ACID 2.7 mmol/L (0.4-2.0)
[2024-05-19 22:04] LABS: LACTIC ACID 2.4 mmol/L (0.4-2.0)
[2024-05-19] MEDS: INSULIN (LEVEMIR) 100 UNITS/ML UNITS SQ SCH (23:24)
[2024-05-19] MEDS: HEPARIN NA (PORCINE) 5,000 UNITS/ML 1ML VIAL SQ SCH (23:24)
[2024-05-19] MEDS: CHLORHEXIDINE GLUCONATE 4% CLEANSER FOR DECOLONIZATION TP SCH (23:24)
[2024-05-19] MEDS: INSULIN ASPART SLIDING SCALE (NOVOLOG) 1 VIAL SQ SCH (23:31)
[2024-05-20] MEDS: LYTES/YERBA SANTA 60 ML SPRAY MM SCH (00:05)
[2024-05-20 02:59] LABS: LACTIC ACID 3.1 mmol/L (0.4-2.0)
[2024-05-20 09:04] LABS: HEMATOCRIT 27.7 % (32.4-45.2); HEMOGLOBIN 9.2 GM/dL (10.7-15.3); MCH 27.3 pg (25.7-33.7); MCHC 33.2 g/dl (32.0-36.0); MEAN CELL VOLUME 82.3 fl (80-96); MEAN PLT VOLUME 8.9 fl (7.5-11.1); PLATELET COUNT 446 10^3/uL (134-434); RBC 3.37 M/mm3 (3.60-5.2); RDW 19.3 % (11.6-15.6); WHITE BLOOD COUNT 23.3 K/mm3 (4.0-10.0)
[2024-05-20] MEDS: PANTOPRAZOLE SODIUM 40 MG VIAL IVPUSH SCH (09:08)
[2024-05-20] MEDS: FERROUS SO4 300 MG/5 ML ORAL SOLN UNIT DOSE CUPS GT SCH (09:08)
[2024-05-20] MEDS: AMINO ACIDS/PROTEIN HYDROLYS 30 ML LIQUID.PKT GT SCH (09:09)
[2024-05-20] MEDS: ZINC SULFATE 220 MG CAPSULE (FP) PEG SCH (09:09)
[2024-05-20] MEDS: VITAMIN B COMP W-C 1 EA TABLET (NEPHRO-VITE) GT SCH (09:09)
[2024-05-20 09:23] LABS: LACTIC ACID 2.1 mmol/L (0.4-2.0)
[2024-05-20] MEDS ORDERED: COLLAGENASE CLOSTRIDIUM HIST. 30 GRAMS TUBE TP SCH (10:00)
[2024-05-20 10:14] LABS: ANISOCYTOSIS 1+; MACROCYTOSIS 0; TARGET CELLS 1+
[2024-05-20] MEDS: MEROPENEM 1 GM in DEXTROSE 5%-WATER 100 ML IVPB SCH (14:02)
[2024-05-21 08:03] LABS: HEMATOCRIT 26.6 % (32.4-45.2); HEMOGLOBIN 8.8 GM/dL (10.7-15.3); MCHC 33.1 g/dl (32.0-36.0); MEAN CELL VOLUME 81.6 fl (80-96); MEAN PLT VOLUME 8.7 fl (7.5-11.1); PLATELET COUNT 449 10^3/uL (134-434); RBC 3.26 M/mm3 (3.60-5.2); RDW 19.9 % (11.6-15.6); WHITE BLOOD COUNT 24.7 K/mm3 (4.0-10.0)
[2024-05-21 08:21] LABS: POTASSIUM 3.7 mmol/L (3.5-5.1)
[2024-05-21 08:34] LABS: ALBUMIN 1.1 g/dl (3.4-5.0); CALCIUM 9.2 mg/dL (8.5-10.1)
[2024-05-21 08:35] LABS: BLOOD UREA NITROGEN 74.3 mg/dL (7-18); MAGNESIUM 2.5 mg/dL (1.8-2.4)
[2024-05-21 08:37] LABS: CREATININE 3.9 mg/dL (0.55-1.3); PHOSPHOROUS 1.6 mg/dL (2.5-4.9)
[2024-05-21 08:39] LABS: BILIRUBIN,TOTAL 1.3 mg/dL (0.2-1)
[2024-05-21] MEDS: LACTATED RINGERS SOLUTION 1,000 ML/1,000 ML INFUS.BAG IV SCH (11:47)
[2024-05-21] MEDS: INSULIN ASPART SLIDING SCALE (NOVOLOG) 1 VIAL SQ SCH (16:29)
[2024-05-21] MEDS: LYTES/YERBA SANTA 60 ML SPRAY MM SCH (17:35)
[2024-05-21] MEDS: HEPARIN NA (PORCINE) 5,000 UNITS/ML 1ML VIAL SQ SCH (22:30)
[2024-05-21] MEDS: LINEZOLID 600 MG PREMIX BAG 600 MG/300 ML BAG IVPB SCH (22:31)
[2024-05-21] MEDS: INSULIN (LEVEMIR) 100 UNITS/ML UNITS SQ SCH (22:44)
[2024-05-21] MEDS: FUROSEMIDE 40 MG/4 ML INJECTABLE VIAL IVPUSH ONE (22:50)
[2024-05-22] MEDS: FUROSEMIDE 40 MG/4 ML INJECTABLE VIAL IVPUSH ONE (03:51)
[2024-05-22 08:55] LABS: HEMATOCRIT 24.2 % (32.4-45.2); HEMOGLOBIN 8.1 GM/dL (10.7-15.3); MCH 27.3 pg (25.7-33.7); MCHC 33.6 g/dl (32.0-36.0); MEAN CELL VOLUME 81.3 fl (80-96); MEAN PLT VOLUME 8.6 fl (7.5-11.1); PLATELET COUNT 436 10^3/uL (134-434); RBC 2.98 M/mm3 (3.60-5.2); RDW 20.2 % (11.6-15.6); WHITE BLOOD COUNT 28.6 K/mm3 (4.0-10.0)
[2024-05-22 09:15] LABS: POTASSIUM 3.8 mmol/L (3.5-5.1)
[2024-05-22 09:17] LABS: CALCIUM 9.8 mg/dL (8.5-10.1)
[2024-05-22 09:18] LABS: ALBUMIN 1.1 g/dl (3.4-5.0); MAGNESIUM 2.6 mg/dL (1.8-2.4)
[2024-05-22 09:21] LABS: CREATININE 4.5 mg/dL (0.55-1.3)
[2024-05-22 09:23] LABS: BILIRUBIN,TOTAL 2.6 mg/dL (0.2-1); TOT PROT 6.1 g/dl (6.4-8.2)
[2024-05-22] MEDS: VITAMIN B COMP W-C 1 EA TABLET (NEPHRO-VITE) GT SCH (10:13)
[2024-05-22] MEDS: PANTOPRAZOLE SODIUM 40 MG VIAL IVPUSH SCH (10:13)
[2024-05-22] MEDS: FERROUS SO4 300 MG/5 ML ORAL SOLN UNIT DOSE CUPS GT SCH (10:13)
[2024-05-22] MEDS: COLLAGENASE CLOSTRIDIUM HIST. 30 GRAMS TUBE TP SCH (10:14)
[2024-05-22] MEDS: SCOPOLAMINE HYDROBROMIDE 1 PATCH PATCH.TD72 TD SCH (10:14)
[2024-05-22 10:25] LABS: PLATELET ESTIMATE SLT INCREASE
[2024-05-22] MEDS ORDERED: SCOPOLAMINE HYDROBROMIDE 1 PATCH PATCH.TD72 TD SCH (10:45)
[2024-05-22] MEDS: ZINC SULFATE 220 MG CAPSULE (FP) PEG SCH (12:08)
[2024-05-22] MEDS: AMINO ACIDS/PROTEIN HYDROLYS 30 ML LIQUID.PKT GT SCH (12:08)
[2024-05-22] MEDS: MEROPENEM 1 GM in DEXTROSE 5%-WATER 100 ML IVPB SCH (12:08)
[2024-05-22] MEDS ORDERED: SODIUM CHLORIDE 250 ML IV PRN (12:53)
[2024-05-22] MEDS: EPOETIN ALFA-EPBX 10,000 UNIT/ML VIAL IVPUSH ONE (15:03)
[2024-05-23 10:06] LABS: HEMATOCRIT 24.1 % (32.4-45.2); HEMOGLOBIN 7.9 GM/dL (10.7-15.3); MCH 27.2 pg (25.7-33.7); MCHC 32.8 g/dl (32.0-36.0); MEAN CELL VOLUME 82.9 fl (80-96); MEAN PLT VOLUME 8.6 fl (7.5-11.1); PLATELET COUNT 412 10^3/uL (134-434); RBC 2.91 M/mm3 (3.60-5.2); RDW 19.9 % (11.6-15.6); WHITE BLOOD COUNT 21.8 K/mm3 (4.0-10.0)
[2024-05-23 10:21] LABS: CHLORIDE 109 mmol/L (98-107); POTASSIUM 3.7 mmol/L (3.5-5.1); SODIUM 144 mmol/L (136-145)
[2024-05-23 10:30] LABS: ANION GAP 9 mmol/L (4-13); CALCIUM 8.9 mg/dL (8.5-10.1); CO2 27 mmol/L (21-32); GLUCOSE,RANDOM 115 mg/dL (74-106); MAGNESIUM 2.3 mg/dL (1.8-2.4)
[2024-05-23 10:31] LABS: ANISOCYTOSIS 2+; MACROCYTOSIS 0; TARGET CELLS 1+
[2024-05-23 10:32] LABS: CREATININE 2.8 mg/dL (0.55-1.3); SGOT/AST 53 U/L (15-37); SGPT/ALT 51 U/L (13-61)
[2024-05-23 10:33] LABS: PLATELET ESTIMATE ADEQUATE
[2024-05-23 10:34] LABS: BILIRUBIN,TOTAL 2.5 mg/dL (0.2-1); BLOOD UREA NITROGEN 45.7 mg/dL (7-18); TOT PROT 5.8 g/dl (6.4-8.2)
[2024-05-23 10:39] LABS: IRON SERUM 35 ug/dL (50-175)
[2024-05-23 10:41] LABS: TOTAL IRON BINDING CAPACITY 83 ug/dL (250-450)
[2024-05-23 10:44] LABS: ALK PHOS 637 U/L (45-117)
[2024-05-23] MEDS: ALBUTEROL SO4 2.5/IPRATROPIUM 0.5 INH SOL 3 ML VIAL.NEB. NEB SCH (15:59)
[2024-05-24 07:52] LABS: HEMATOCRIT 23.8 % (32.4-45.2); HEMOGLOBIN 7.7 GM/dL (10.7-15.3); MCH 27.5 pg (25.7-33.7); MCHC 32.3 g/dl (32.0-36.0); MEAN CELL VOLUME 85.1 fl (80-96); MEAN PLT VOLUME 8.5 fl (7.5-11.1); PLATELET COUNT 391 10^3/uL (134-434); RBC 2.79 M/mm3 (3.60-5.2); RDW 20.6 % (11.6-15.6); WHITE BLOOD COUNT 24.9 K/mm3 (4.0-10.0)
[2024-05-24 07:54] LABS: POTASSIUM 3.9 mmol/L (3.5-5.1)
[2024-05-24 07:58] LABS: HEMATOCRIT 23.7 % (32.4-45.2); HEMOGLOBIN 7.6 GM/dL (10.7-15.3); MCH 27.2 pg (25.7-33.7); MCHC 32.1 g/dl (32.0-36.0); MEAN CELL VOLUME 84.7 fl (80-96); MEAN PLT VOLUME 8.5 fl (7.5-11.1); PLATELET COUNT 402 10^3/uL (134-434); RDW 20.3 % (11.6-15.6); WHITE BLOOD COUNT 25.9 K/mm3 (4.0-10.0)
[2024-05-24 08:04] LABS: CALCIUM 9.4 mg/dL (8.5-10.1)
[2024-05-24 08:05] LABS: MAGNESIUM 2.5 mg/dL (1.8-2.4)
[2024-05-24 08:08] LABS: CREATININE 3.5 mg/dL (0.55-1.3); PHOSPHOROUS 2.7 mg/dL (2.5-4.9)
[2024-05-24 08:09] LABS: BILIRUBIN,TOTAL 2.1 mg/dL (0.2-1); TOT PROT 5.8 g/dl (6.4-8.2)
[2024-05-24 09:00] LABS: ANISOCYTOSIS 2+; MACROCYTOSIS 0; TARGET CELLS 1+
[2024-05-24] MEDS ORDERED: SODIUM CHLORIDE 250 ML IV PRN (16:46)
[2024-05-24] MEDS: ACETAMINOPHEN 1000 MG/100 ML BAG IVPB ONE (22:01)
[2024-05-25 08:38] LABS: HEMATOCRIT 22.5 % (32.4-45.2); HEMOGLOBIN 7.5 GM/dL (10.7-15.3); MCH 28.1 pg (25.7-33.7); MCHC 33.2 g/dl (32.0-36.0); MEAN CELL VOLUME 84.8 fl (80-96); MEAN PLT VOLUME 8.2 fl (7.5-11.1); PLATELET COUNT 352 10^3/uL (134-434); RBC 2.65 M/mm3 (3.60-5.2); RDW 20.9 % (11.6-15.6); WHITE BLOOD COUNT 23.7 K/mm3 (4.0-10.0)
[2024-05-25 09:01] LABS: POTASSIUM 3.9 mmol/L (3.5-5.1)
[2024-05-25 09:05] LABS: BLOOD UREA NITROGEN 74.3 mg/dL (7-18); CALCIUM 9.3 mg/dL (8.5-10.1)
[2024-05-25 09:08] LABS: CREATININE 4.2 mg/dL (0.55-1.3)
[2024-05-25 09:10] LABS: BILIRUBIN,TOTAL 1.6 mg/dL (0.2-1); TOT PROT 6.1 g/dl (6.4-8.2)
[2024-05-25 09:47] LABS: PLATELET ESTIMATE ADEQUATE
[2024-05-25] MEDS: EPOETIN ALFA-EPBX 10,000 UNIT/ML VIAL IVPUSH ONE (16:56)
[2024-05-25] MEDS: HEPARIN NA (PORCINE) 5,000 UNITS/ML 1ML VIAL IVPUSH ONE (16:56)
[2024-05-25] MEDS ORDERED: LIDOCAINE HCL 1%, 10 MG/ML (20ML VIAL) ONE (20:06)
[2024-05-25] MEDS: LIDOCAINE HCL 1%, 10 MG/ML (20ML VIAL) SQ ONE (20:10)
[2024-05-26 09:13] LABS: HEMATOCRIT 19.2 % (32.4-45.2); MCH 27.4 pg (25.7-33.7); MCHC 32.5 g/dl (32.0-36.0); MEAN CELL VOLUME 84.3 fl (80-96); MEAN PLT VOLUME 7.9 fl (7.5-11.1); PLATELET COUNT 271 10^3/uL (134-434); RBC 2.27 M/mm3 (3.60-5.2); WHITE BLOOD COUNT 20.7 K/mm3 (4.0-10.0)
[2024-05-26 09:27] LABS: POTASSIUM 3.3 mmol/L (3.5-5.1)
[2024-05-26 09:31] LABS: ALBUMIN 1.2 g/dl (3.4-5.0); CALCIUM 9.2 mg/dL (8.5-10.1)
[2024-05-26 09:34] LABS: BLOOD UREA NITROGEN 47.2 mg/dL (7-18)
[2024-05-26 09:35] LABS: CREATININE 2.6 mg/dL (0.55-1.3)
[2024-05-26 09:36] LABS: BILIRUBIN,TOTAL 1.4 mg/dL (0.2-1); TOT PROT 5.8 g/dl (6.4-8.2)
[2024-05-26 09:38] LABS: HEMOGLOBIN 6.2 GM/dL (10.7-15.3)
[2024-05-26 10:27] LABS: ANISOCYTOSIS 0; MACROCYTOSIS 0
[2024-05-27 09:10] LABS: MCH 27.9 pg (25.7-33.7); MCHC 32.7 g/dl (32.0-36.0); MEAN CELL VOLUME 85.5 fl (80-96); MEAN PLT VOLUME 7.6 fl (7.5-11.1); PLATELET COUNT 231 10^3/uL (134-434); RBC 2.22 M/mm3 (3.60-5.2); RDW 21.2 % (11.6-15.6); WHITE BLOOD COUNT 13.3 K/mm3 (4.0-10.0)
[2024-05-27 09:19] LABS: HEMOGLOBIN 6.2 GM/dL (10.7-15.3)
[2024-05-27 09:29] LABS: POTASSIUM 3.5 mmol/L (3.5-5.1)
[2024-05-27 09:31] LABS: ALBUMIN 1.1 g/dl (3.4-5.0); BLOOD UREA NITROGEN 68.1 mg/dL (7-18)
[2024-05-27 09:34] LABS: CREATININE 3.1 mg/dL (0.55-1.3)
[2024-05-27 09:36] LABS: BILIRUBIN,TOTAL 1.2 mg/dL (0.2-1); TOT PROT 5.6 g/dl (6.4-8.2)
[2024-05-27 10:34] LABS: ANISOCYTOSIS 0; MACROCYTOSIS 0
[2024-05-28 12:01] LABS: HEMATOCRIT 23.3 % (32.4-45.2); HEMOGLOBIN 7.7 GM/dL (10.7-15.3); MCH 28.6 pg (25.7-33.7); MCHC 32.9 g/dl (32.0-36.0); MEAN CELL VOLUME 86.8 fl (80-96); MEAN PLT VOLUME 7.9 fl (7.5-11.1); PLATELET COUNT 206 10^3/uL (134-434); RBC 2.68 M/mm3 (3.60-5.2); RDW 21.3 % (11.6-15.6); WHITE BLOOD COUNT 11.8 K/mm3 (4.0-10.0)
[2024-05-28 12:33] LABS: ALBUMIN 1.2 g/dl (3.4-5.0); BLOOD UREA NITROGEN 82.4 mg/dL (7-18); CALCIUM 9.1 mg/dL (8.5-10.1); MAGNESIUM 2.3 mg/dL (1.8-2.4)
[2024-05-28 12:35] LABS: CREATININE 3.4 mg/dL (0.55-1.3); PHOSPHOROUS 2.6 mg/dL (2.5-4.9)
[2024-05-28 12:36] LABS: BILIRUBIN,TOTAL 1.3 mg/dL (0.2-1)
[2024-05-28 12:38] LABS: TOT PROT 6.2 g/dl (6.4-8.2)
[2024-05-29 08:58] LABS: HEMATOCRIT 20.8 % (32.4-45.2); MCHC 33.5 g/dl (32.0-36.0); MEAN CELL VOLUME 86.7 fl (80-96); MEAN PLT VOLUME 8.4 fl (7.5-11.1); PLATELET COUNT 177 10^3/uL (134-434); RDW 21.9 % (11.6-15.6); WHITE BLOOD COUNT 10.1 K/mm3 (4.0-10.0)
[2024-05-29 09:06] LABS: POTASSIUM 3.9 mmol/L (3.5-5.1)
[2024-05-29 09:26] LABS: BLOOD UREA NITROGEN 97.4 mg/dL (7-18)
[2024-05-29 09:28] LABS: ALBUMIN 1.1 g/dl (3.4-5.0); CALCIUM 9.1 mg/dL (8.5-10.1)
[2024-05-29 09:29] LABS: MAGNESIUM 2.3 mg/dL (1.8-2.4)
[2024-05-29 09:31] LABS: CREATININE 3.7 mg/dL (0.55-1.3); PHOSPHOROUS 2.3 mg/dL (2.5-4.9)
[2024-05-29 09:32] LABS: BILIRUBIN,TOTAL 1.2 mg/dL (0.2-1); TOT PROT 5.8 g/dl (6.4-8.2)
[2024-05-29] MEDS: FUROSEMIDE 40 MG/4 ML INJECTABLE VIAL IVPUSH ONE (13:25)
[2024-05-30] MEDS ORDERED: INSULIN (LEVEMIR) 100 UNITS/ML UNITS SQ ONE (06:37)
[2024-05-30 10:24] LABS: MCH 29.2 pg (25.7-33.7); MCHC 34.1 g/dl (32.0-36.0); MEAN CELL VOLUME 85.6 fl (80-96); MEAN PLT VOLUME 8.3 fl (7.5-11.1); PLATELET COUNT 156 10^3/uL (134-434); RBC 2.33 M/mm3 (3.60-5.2); RDW 22.4 % (11.6-15.6); WHITE BLOOD COUNT 8.8 K/mm3 (4.0-10.0)
[2024-05-30 10:28] LABS: HEMOGLOBIN 6.8 GM/dL (10.7-15.3)
[2024-05-30 10:34] LABS: CHLORIDE 93 mmol/L (98-107); POTASSIUM 4.1 mmol/L (3.5-5.1); SODIUM 129 mmol/L (136-145)
[2024-05-30 10:44] LABS: ANION GAP 11 mmol/L (4-13); CALCIUM 9.4 mg/dL (8.5-10.1); CO2 25 mmol/L (21-32)
[2024-05-30 10:45] LABS: GLUCOSE,RANDOM 87 mg/dL (74-106)
[2024-05-30 10:46] LABS: SGPT/ALT 23 U/L (13-61)
[2024-05-30 10:47] LABS: SGOT/AST 76 U/L (15-37)
[2024-05-30 10:48] LABS: BILIRUBIN,TOTAL 1.2 mg/dL (0.2-1); TOT PROT 5.4 g/dl (6.4-8.2)
[2024-05-30 10:51] LABS: ALK PHOS 570 U/L (45-117); BLOOD UREA NITROGEN 114.8 mg/dL (7-18)
[2024-05-31 09:18] LABS: HEMATOCRIT 22.7 % (32.4-45.2); HEMOGLOBIN 7.7 GM/dL (10.7-15.3); MCH 28.8 pg (25.7-33.7); MEAN CELL VOLUME 84.5 fl (80-96); MEAN PLT VOLUME 8.3 fl (7.5-11.1); PLATELET COUNT 149 10^3/uL (134-434); RBC 2.68 M/mm3 (3.60-5.2); RDW 22.5 % (11.6-15.6); WHITE BLOOD COUNT 9.5 K/mm3 (4.0-10.0)
[2024-05-31 09:47] LABS: CHLORIDE 91 mmol/L (98-107); POTASSIUM 4.5 mmol/L (3.5-5.1); SODIUM 128 mmol/L (136-145)
[2024-05-31 09:54] LABS: CALCIUM 8.9 mg/dL (8.5-10.1); GLUCOSE,RANDOM 77 mg/dL (74-106)
[2024-05-31 09:55] LABS: ALBUMIN 1.1 g/dl (3.4-5.0); ANION GAP 13 mmol/L (4-13); CO2 23 mmol/L (21-32); MAGNESIUM 2.3 mg/dL (1.8-2.4)
[2024-05-31 09:57] LABS: CREATININE 4.1 mg/dL (0.55-1.3)
[2024-05-31 09:59] LABS: SGOT/AST 67 U/L (15-37); SGPT/ALT 19 U/L (13-61)
[2024-05-31 10:00] LABS: ALK PHOS 566 U/L (45-117); PHOSPHOROUS 3.4 mg/dL (2.5-4.9)
[2024-05-31 10:01] LABS: BILIRUBIN,TOTAL 1.8 mg/dL (0.2-1); TOT PROT 5.6 g/dl (6.4-8.2)
[2024-05-31 10:08] LABS: BLOOD UREA NITROGEN 121.4 mg/dL (7-18)
[2024-05-31] MEDS ORDERED: SODIUM CHLORIDE 250 ML IV PRN (13:21)
[2024-05-31] MEDS: EPOETIN ALFA-EPBX 10,000 UNIT/ML VIAL SQ ONE (17:22)
[2024-06-01] MEDS ORDERED: SODIUM CHLORIDE 250 ML IV PRN (07:54)
[2024-06-01 09:22] LABS: HEMOGLOBIN 7.4 GM/dL (10.7-15.3); MCH 28.8 pg (25.7-33.7); MCHC 33.8 g/dl (32.0-36.0); MEAN CELL VOLUME 85.4 fl (80-96); MEAN PLT VOLUME 8.8 fl (7.5-11.1); PLATELET COUNT 183 10^3/uL (134-434); RBC 2.58 M/mm3 (3.60-5.2); RDW 22.8 % (11.6-15.6); WHITE BLOOD COUNT 9.3 K/mm3 (4.0-10.0)
[2024-06-01 09:43] LABS: POTASSIUM 3.6 mmol/L (3.5-5.1)
[2024-06-01 09:49] LABS: CREATININE 3.5 mg/dL (0.55-1.3)
[2024-06-01 09:51] LABS: BILIRUBIN,TOTAL 1.3 mg/dL (0.2-1); TOT PROT 5.4 g/dl (6.4-8.2)
[2024-06-01 09:56] LABS: BLOOD UREA NITROGEN 85.3 mg/dL (7-18)
[2024-06-01] MEDS: EPOETIN ALFA-EPBX 10,000 UNIT/ML VIAL SQ ONE (11:29)
[2024-06-01 12:46] LABS: HEMATOCRIT 21.3 % (32.4-45.2); HEMOGLOBIN 7.3 GM/dL (10.7-15.3); MCH 28.4 pg (25.7-33.7); MEAN CELL VOLUME 83.5 fl (80-96); MEAN PLT VOLUME 8.6 fl (7.5-11.1); PLATELET COUNT 190 10^3/uL (134-434); RBC 2.55 M/mm3 (3.60-5.2); RDW 22.7 % (11.6-15.6); WHITE BLOOD COUNT 8.2 K/mm3 (4.0-10.0)
[2024-06-01 13:15] LABS: POTASSIUM 3.1 mmol/L (3.5-5.1)
[2024-06-01 13:19] LABS: ALBUMIN 1.3 g/dl (3.4-5.0); CALCIUM 8.3 mg/dL (8.5-10.1); MAGNESIUM 1.8 mg/dL (1.8-2.4)
[2024-06-01 13:22] LABS: BLOOD UREA NITROGEN 34.8 mg/dL (7-18); CREATININE 1.7 mg/dL (0.55-1.3); PHOSPHOROUS 1.4 mg/dL (2.5-4.9)
[2024-06-01 13:24] LABS: BILIRUBIN,TOTAL 1.4 mg/dL (0.2-1); TOT PROT 5.7 g/dl (6.4-8.2)
[2024-06-01] MEDS: LOPERAMIDE HCL 1 MG/5 ML UNIT DOSE CUP PO ONE (17:50)
[2024-06-01] MEDS: ERTAPENEM SODIUM 1 GM in SODIUM CHLORIDE 50 ML IVPB ONE (17:51)
[2024-06-02 08:47] LABS: HEMATOCRIT 22.1 % (32.4-45.2); HEMOGLOBIN 7.5 GM/dL (10.7-15.3); MCH 29.1 pg (25.7-33.7); MCHC 33.9 g/dl (32.0-36.0); MEAN CELL VOLUME 85.9 fl (80-96); MEAN PLT VOLUME 8.6 fl (7.5-11.1); PLATELET COUNT 240 10^3/uL (134-434); RBC 2.57 M/mm3 (3.60-5.2); RDW 23.2 % (11.6-15.6); WHITE BLOOD COUNT 8.7 K/mm3 (4.0-10.0)
[2024-06-02 09:07] LABS: POTASSIUM 3.4 mmol/L (3.5-5.1)
[2024-06-02 09:11] LABS: ALBUMIN 1.2 g/dl (3.4-5.0); CALCIUM 8.4 mg/dL (8.5-10.1)
[2024-06-02 09:13] LABS: CREATININE 2.2 mg/dL (0.55-1.3)
[2024-06-02 09:16] LABS: BILIRUBIN,TOTAL 0.9 mg/dL (0.2-1); TOT PROT 5.5 g/dl (6.4-8.2)
[2024-06-02 11:22] LABS: BLOOD UREA NITROGEN 44.8 mg/dL (7-18)
[2024-06-02] MEDS: AMPICILLIN - 2 GM in SODIUM CHLORIDE 100 ML IVPB SCH (22:30)
[2024-06-04 10:19] LABS: HEMATOCRIT 20.7 % (32.4-45.2); HEMOGLOBIN 7.1 GM/dL (10.7-15.3); MCH 29.6 pg (25.7-33.7); MCHC 34.1 g/dl (32.0-36.0); MEAN CELL VOLUME 86.8 fl (80-96); MEAN PLT VOLUME 8.1 fl (7.5-11.1); PLATELET COUNT 354 10^3/uL (134-434); RBC 2.39 M/mm3 (3.60-5.2); RDW 24.4 % (11.6-15.6); WHITE BLOOD COUNT 9.7 K/mm3 (4.0-10.0)
[2024-06-04 10:37] LABS: CALCIUM 8.8 mg/dL (8.5-10.1)
[2024-06-04 10:38] LABS: ALBUMIN 1.1 g/dl (3.4-5.0); MAGNESIUM 2.2 mg/dL (1.8-2.4)
[2024-06-04 10:41] LABS: CREATININE 3.1 mg/dL (0.55-1.3)
[2024-06-04 10:42] LABS: BILIRUBIN,TOTAL 0.9 mg/dL (0.2-1); BLOOD UREA NITROGEN 72.9 mg/dL (7-18)
[2024-06-04 10:43] LABS: TOT PROT 5.4 g/dl (6.4-8.2)
[2024-06-04] MEDS ORDERED: SODIUM CHLORIDE 250 ML IV PRN (15:57)
[2024-06-04] MEDS: EPOETIN ALFA-EPBX 10,000 UNIT/ML VIAL SQ ONE (17:43)
[2024-06-05 10:15] LABS: POTASSIUM 4.1 mmol/L (3.5-5.1)
[2024-06-05 10:29] LABS: BLOOD UREA NITROGEN 83.3 mg/dL (7-18); CALCIUM 8.6 mg/dL (8.5-10.1); MAGNESIUM 2.4 mg/dL (1.8-2.4)
[2024-06-05 10:32] LABS: CREATININE 3.6 mg/dL (0.55-1.3)
[2024-06-05 10:33] LABS: PHOSPHOROUS 4.2 mg/dL (2.5-4.9)
[2024-06-05 10:34] LABS: BILIRUBIN,TOTAL 0.9 mg/dL (0.2-1); TOT PROT 5.2 g/dl (6.4-8.2)
[2024-06-05] MEDS ORDERED: EPOETIN ALFA-EPBX 10,000 UNIT/ML VIAL SQ ONE (15:57)
[2024-06-06 09:25] LABS: HEMATOCRIT 20.7 % (32.4-45.2); MCH 29.1 pg (25.7-33.7); MCHC 33.6 g/dl (32.0-36.0); MEAN CELL VOLUME 86.5 fl (80-96); MEAN PLT VOLUME 7.6 fl (7.5-11.1); PLATELET COUNT 383 10^3/uL (134-434); RDW 23.9 % (11.6-15.6); WHITE BLOOD COUNT 9.3 K/mm3 (4.0-10.0)
[2024-06-06 09:32] LABS: POTASSIUM 4.3 mmol/L (3.5-5.1)
[2024-06-06 09:37] LABS: BLOOD UREA NITROGEN 89.4 mg/dL (7-18); CALCIUM 8.6 mg/dL (8.5-10.1); MAGNESIUM 2.4 mg/dL (1.8-2.4)
[2024-06-06 09:38] LABS: CREATININE 3.9 mg/dL (0.55-1.3); PHOSPHOROUS 5.4 mg/dL (2.5-4.9)
[2024-06-06 09:40] LABS: BILIRUBIN,TOTAL 0.9 mg/dL (0.2-1); TOT PROT 5.5 g/dl (6.4-8.2)
[2024-06-06] MEDS ORDERED: DEXTROSE 50%-WATER 25 GM/50 ML DISP.SYRIN IVPUSH PRN (09:56)
[2024-06-06] MEDS: ACETAMINOPHEN 1000 MG/100 ML BAG IVPB SCH (19:35)
[2024-06-06] MEDS ORDERED: ACETAMINOPHEN 650 MG/20.3 ML ORAL SOLUTION (CUPS) GT SCH (20:00)
[2024-06-07] MEDS: ACETAMINOPHEN 650 MG/20.3 ML ORAL SOLUTION (CUPS) GT SCH (01:04)
[2024-06-07 10:51] LABS: HEMOGLOBIN 7.5 GM/dL (10.7-15.3); MCH 29.8 pg (25.7-33.7); MCHC 34.2 g/dl (32.0-36.0); MEAN PLT VOLUME 7.5 fl (7.5-11.1); PLATELET COUNT 477 10^3/uL (134-434); RBC 2.53 M/mm3 (3.60-5.2); RDW 23.7 % (11.6-15.6); WHITE BLOOD COUNT 10.9 K/mm3 (4.0-10.0)
[2024-06-07 11:02] LABS: POTASSIUM 4.2 mmol/L (3.5-5.1)
[2024-06-07 11:11] LABS: ALBUMIN 1.1 g/dl (3.4-5.0); BLOOD UREA NITROGEN 96.4 mg/dL (7-18); MAGNESIUM 2.4 mg/dL (1.8-2.4)
[2024-06-07 11:14] LABS: PHOSPHOROUS 5.6 mg/dL (2.5-4.9)
[2024-06-07 11:16] LABS: TOT PROT 5.7 g/dl (6.4-8.2)
[2024-06-07] MEDS ORDERED: LIDOCAINE HCL 1%, 10 MG/ML (20ML VIAL) ONE (14:51)
[2024-06-07] MEDS ORDERED: PROPOFOL 40 ML ONE (18:05)
[2024-06-07] MEDS ORDERED: ceFAZolin SODIUM 1 GM VIAL ONE (18:08)
[2024-06-07] MEDS: ceFAZolin SODIUM 1 GM VIAL IVPB ONE (18:10)
[2024-06-07] MEDS ORDERED: DEXTROSE 50%-WATER 25 GM/50 ML DISP.SYRIN IVPUSH PRN (19:25)
[2024-06-07] MEDS: AMPICILLIN - 2 GM in SODIUM CHLORIDE 100 ML IVPB SCH (21:56)
[2024-06-07] MEDS: INSULIN ASPART SLIDING SCALE (NOVOLOG) 1 VIAL SQ SCH (21:56)
[2024-06-08] MEDS: LYTES/YERBA SANTA 60 ML SPRAY MM SCH (01:00)
[2024-06-08] MEDS: ACETAMINOPHEN 650 MG/20.3 ML ORAL SOLUTION (CUPS) GT SCH (01:06)
[2024-06-08] MEDS: LIDOCAINE HCL 1%, 10 MG/ML (20ML VIAL) INF ONE (07:59)
[2024-06-08] MEDS: AMINO ACIDS/PROTEIN HYDROLYS 30 ML LIQUID.PKT GT SCH (08:29)
[2024-06-08] MEDS ORDERED: SODIUM CHLORIDE 250 ML IV PRN ×2 (08:50→14:38)
[2024-06-08 09:22] LABS: HEMATOCRIT 20.5 % (32.4-45.2); MCH 28.6 pg (25.7-33.7); MCHC 32.8 g/dl (32.0-36.0); MEAN CELL VOLUME 87.2 fl (80-96); MEAN PLT VOLUME 7.6 fl (7.5-11.1); PLATELET COUNT 454 10^3/uL (134-434); RBC 2.35 M/mm3 (3.60-5.2); RDW 23.6 % (11.6-15.6); WHITE BLOOD COUNT 11.2 K/mm3 (4.0-10.0)
[2024-06-08 09:26] LABS: HEMOGLOBIN 6.7 GM/dL (10.7-15.3)
[2024-06-08] MEDS: FERROUS SO4 300 MG/5 ML ORAL SOLN UNIT DOSE CUPS GT SCH (09:27)
[2024-06-08] MEDS: ZINC SULFATE 220 MG CAPSULE (FP) PEG SCH (09:27)
[2024-06-08] MEDS: PANTOPRAZOLE SODIUM 40 MG VIAL IVPUSH SCH (09:27)
[2024-06-08 09:30] LABS: POTASSIUM 3.8 mmol/L (3.5-5.1)
[2024-06-08 09:32] LABS: CALCIUM 8.1 mg/dL (8.5-10.1)
[2024-06-08 09:33] LABS: BLOOD UREA NITROGEN 102.4 mg/dL (7-18)
[2024-06-08 09:36] LABS: CREATININE 4.2 mg/dL (0.55-1.3)
[2024-06-08 09:38] LABS: BILIRUBIN,TOTAL 0.6 mg/dL (0.2-1)
[2024-06-08] MEDS: EPOETIN ALFA-EPBX 10,000 UNIT/ML VIAL SQ ONE (10:13)
[2024-06-08] MEDS: VITAMIN B COMP W-C 1 EA TABLET (NEPHRO-VITE) GT SCH (11:16)
[2024-06-08] MEDS: COLLAGENASE CLOSTRIDIUM HIST. 30 GRAMS TUBE TP SCH (11:30)
[2024-06-08 21:39] LABS: HEMATOCRIT 20.2 % (32.4-45.2); MCH 28.8 pg (25.7-33.7); MCHC 33.3 g/dl (32.0-36.0); MEAN CELL VOLUME 86.4 fl (80-96); MEAN PLT VOLUME 7.2 fl (7.5-11.1); PLATELET COUNT 450 10^3/uL (134-434); RBC 2.34 M/mm3 (3.60-5.2); RDW 23.4 % (11.6-15.6); WHITE BLOOD COUNT 12.4 K/mm3 (4.0-10.0)
[2024-06-08 21:42] LABS: HEMOGLOBIN 6.7 GM/dL (10.7-15.3)
[2024-06-09 08:51] LABS: MAGNESIUM 2.1 mg/dL (1.8-2.4)
[2024-06-09 08:58] LABS: HEMATOCRIT 21.2 % (32.4-45.2); MCH 28.5 pg (25.7-33.7); MCHC 32.6 g/dl (32.0-36.0); MEAN CELL VOLUME 87.4 fl (80-96); MEAN PLT VOLUME 7.4 fl (7.5-11.1); PLATELET COUNT 445 10^3/uL (134-434); RBC 2.43 M/mm3 (3.60-5.2); RDW 23.4 % (11.6-15.6); WHITE BLOOD COUNT 12.7 K/mm3 (4.0-10.0)
[2024-06-09 09:00] LABS: POTASSIUM 3.9 mmol/L (3.5-5.1)
[2024-06-09 09:03] LABS: HEMOGLOBIN 6.9 GM/dL (10.7-15.3)
[2024-06-09 09:06] LABS: ALBUMIN 1.1 g/dl (3.4-5.0)
[2024-06-09 09:09] LABS: BILIRUBIN,TOTAL 0.6 mg/dL (0.2-1); CREATININE 3.1 mg/dL (0.55-1.3)
[2024-06-09 09:10] LABS: TOT PROT 5.4 g/dl (6.4-8.2)
[2024-06-09] MEDS: EPOETIN ALFA-EPBX 10,000 UNIT/ML VIAL IVPUSH ONE (09:43)
[2024-06-09] MEDS: SCOPOLAMINE HYDROBROMIDE 1 PATCH PATCH.TD72 TD SCH (12:08)
[2024-06-09 16:15] LABS: HEMATOCRIT 24.6 % (32.4-45.2); HEMOGLOBIN 8.1 GM/dL (10.7-15.3); MCH 28.6 pg (25.7-33.7); MCHC 32.7 g/dl (32.0-36.0); MEAN CELL VOLUME 87.2 fl (80-96); MEAN PLT VOLUME 7.6 fl (7.5-11.1); PLATELET COUNT 443 10^3/uL (134-434); RBC 2.82 M/mm3 (3.60-5.2); WHITE BLOOD COUNT 16.5 K/mm3 (4.0-10.0)
[2024-06-10 10:00] LABS: BASO % 0.4 % (0-2.0); EOS % 8.3 % (0-4.5); HEMATOCRIT 25.2 % (32.4-45.2); HEMOGLOBIN 8.3 GM/dL (10.7-15.3); LYMPH % 5.7 % (8-40); MCH 28.5 pg (25.7-33.7); MEAN CELL VOLUME 86.5 fl (80-96); MEAN PLT VOLUME 7.4 fl (7.5-11.1); MONO % 10.6 % (3.8-10.2); PLATELET COUNT 470 10^3/uL (134-434); RBC 2.92 M/mm3 (3.60-5.2); RDW 21.4 % (11.6-15.6); WHITE BLOOD COUNT 15.1 K/mm3 (4.0-10.0)
[2024-06-10 10:25] LABS: POTASSIUM 3.4 mmol/L (3.5-5.1)
[2024-06-10 10:34] LABS: CALCIUM 8.2 mg/dL (8.5-10.1)
[2024-06-10 10:35] LABS: ALBUMIN 1.1 g/dl (3.4-5.0); BLOOD UREA NITROGEN 54.1 mg/dL (7-18)
[2024-06-10 10:38] LABS: CREATININE 2.4 mg/dL (0.55-1.3)
[2024-06-10 10:39] LABS: BILIRUBIN,TOTAL 0.5 mg/dL (0.2-1); TOT PROT 5.8 g/dl (6.4-8.2)
[2024-06-10] MEDS ORDERED: INSULIN (LEVEMIR) 100 UNITS/ML UNITS SQ ONE (16:21)
[2024-06-11] MEDS ORDERED: INSULIN (LEVEMIR) 100 UNITS/ML UNITS SQ ONE (06:58)
[2024-06-11 11:58] LABS: HEMATOCRIT 24.6 % (32.4-45.2); MCH 28.3 pg (25.7-33.7); MCHC 32.4 g/dl (32.0-36.0); MEAN CELL VOLUME 87.4 fl (80-96); MEAN PLT VOLUME 7.1 fl (7.5-11.1); PLATELET COUNT 481 10^3/uL (134-434); RBC 2.81 M/mm3 (3.60-5.2); RDW 21.4 % (11.6-15.6); WHITE BLOOD COUNT 14.3 K/mm3 (4.0-10.0)
[2024-06-11 12:09] LABS: POTASSIUM 3.4 mmol/L (3.5-5.1)
[2024-06-11 12:11] LABS: CALCIUM 8.7 mg/dL (8.5-10.1)
[2024-06-11 12:12] LABS: ALBUMIN 1.1 g/dl (3.4-5.0); BLOOD UREA NITROGEN 68.8 mg/dL (7-18)
[2024-06-11 12:15] LABS: CREATININE 2.8 mg/dL (0.55-1.3)
[2024-06-11 12:16] LABS: BILIRUBIN,TOTAL 0.5 mg/dL (0.2-1); TOT PROT 5.7 g/dl (6.4-8.2)
[2024-06-12] MEDS ORDERED: SODIUM CHLORIDE 250 ML IV PRN (07:17)
[2024-06-12 09:40] LABS: HEMATOCRIT 23.5 % (32.4-45.2); HEMOGLOBIN 7.5 GM/dL (10.7-15.3); MCH 28.1 pg (25.7-33.7); MCHC 32.1 g/dl (32.0-36.0); MEAN CELL VOLUME 87.5 fl (80-96); MEAN PLT VOLUME 7.1 fl (7.5-11.1); PLATELET COUNT 480 10^3/uL (134-434); RBC 2.69 M/mm3 (3.60-5.2); RDW 20.9 % (11.6-15.6); WHITE BLOOD COUNT 15.2 K/mm3 (4.0-10.0)
[2024-06-12 10:13] LABS: POTASSIUM 3.6 mmol/L (3.5-5.1)
[2024-06-12 10:36] LABS: CALCIUM 8.5 mg/dL (8.5-10.1)
[2024-06-12 10:37] LABS: ALBUMIN 1.1 g/dl (3.4-5.0); MAGNESIUM 2.3 mg/dL (1.8-2.4)
[2024-06-12 10:40] LABS: PHOSPHOROUS 3.4 mg/dL (2.5-4.9)
[2024-06-12 10:41] LABS: BILIRUBIN,TOTAL 0.8 mg/dL (0.2-1); TOT PROT 5.8 g/dl (6.4-8.2)
[2024-06-12 10:45] LABS: BLOOD UREA NITROGEN 81.7 mg/dL (7-18)
[2024-06-12] MEDS: EPOETIN ALFA-EPBX 10,000 UNIT/ML VIAL SQ ONE (10:58)
[2024-06-12] MEDS: SCOPOLAMINE HYDROBROMIDE 1 PATCH PATCH.TD72 TD SCH (12:14)
[2024-06-12] MEDS ORDERED: INSULIN ASPART SLIDING SCALE (NOVOLOG) 1 VIAL SQ ONE (17:18)
[2024-06-13] MEDS: DEXTROSE 50%-WATER 25 GM/50 ML DISP.SYRIN IVPUSH ONE (06:38)
[2024-06-13 10:23] LABS: HEMATOCRIT 24.3 % (32.4-45.2); HEMOGLOBIN 7.8 GM/dL (10.7-15.3); MCH 28.4 pg (25.7-33.7); MCHC 32.2 g/dl (32.0-36.0); MEAN CELL VOLUME 88.1 fl (80-96); MEAN PLT VOLUME 7.3 fl (7.5-11.1); PLATELET COUNT 484 10^3/uL (134-434); RBC 2.75 M/mm3 (3.60-5.2); WHITE BLOOD COUNT 14.6 K/mm3 (4.0-10.0)
[2024-06-13 10:42] LABS: POTASSIUM 3.6 mmol/L (3.5-5.1)
[2024-06-13 10:48] LABS: CALCIUM 8.6 mg/dL (8.5-10.1)
[2024-06-13 10:49] LABS: MAGNESIUM 2.1 mg/dL (1.8-2.4)
[2024-06-13 10:50] LABS: BLOOD UREA NITROGEN 52.2 mg/dL (7-18)
[2024-06-13 10:51] LABS: BILIRUBIN,TOTAL 0.6 mg/dL (0.2-1); TOT PROT 5.7 g/dl (6.4-8.2)
[2024-06-13 10:52] LABS: CREATININE 2.1 mg/dL (0.55-1.3); PHOSPHOROUS 2.8 mg/dL (2.5-4.9)
[2024-06-13] MEDS: INSULIN ASPART SLIDING SCALE (NOVOLOG) 1 VIAL SQ SCH (16:04)
[2024-06-13] MEDS: INSULIN (LEVEMIR) 100 UNITS/ML UNITS SQ SCH (21:50)
[2024-06-14] MEDS ORDERED: SODIUM CHLORIDE 250 ML IV PRN (07:47)
[2024-06-14] MEDS: EPOETIN ALFA-EPBX 10,000 UNIT/ML VIAL SQ ONE (09:12)
[2024-06-14 09:24] LABS: HEMATOCRIT 23.4 % (32.4-45.2); HEMOGLOBIN 7.7 GM/dL (10.7-15.3); MEAN CELL VOLUME 87.7 fl (80-96); MEAN PLT VOLUME 7.1 fl (7.5-11.1); PLATELET COUNT 488 10^3/uL (134-434); RBC 2.67 M/mm3 (3.60-5.2); RDW 21.1 % (11.6-15.6); WHITE BLOOD COUNT 15.3 K/mm3 (4.0-10.0)
[2024-06-14 09:46] LABS: POTASSIUM 3.7 mmol/L (3.5-5.1)
[2024-06-14 09:50] LABS: BLOOD UREA NITROGEN 67.3 mg/dL (7-18); CALCIUM 8.9 mg/dL (8.5-10.1)
[2024-06-14 09:51] LABS: MAGNESIUM 2.2 mg/dL (1.8-2.4)
[2024-06-14 09:53] LABS: CREATININE 2.4 mg/dL (0.55-1.3)
[2024-06-14 09:55] LABS: BILIRUBIN,TOTAL 0.6 mg/dL (0.2-1); TOT PROT 5.5 g/dl (6.4-8.2)
[2024-06-14] MEDS ORDERED: INSULIN ASPART SLIDING SCALE (NOVOLOG) 1 VIAL SQ ONE (11:10)
[2024-06-14] MEDS ORDERED: INSULIN (LEVEMIR) 100 UNITS/ML UNITS SQ ONE (11:11)
[2024-06-15 09:56] LABS: HEMATOCRIT 22.9 % (32.4-45.2); HEMOGLOBIN 7.4 GM/dL (10.7-15.3); MCH 28.5 pg (25.7-33.7); MCHC 32.4 g/dl (32.0-36.0); MEAN PLT VOLUME 7.2 fl (7.5-11.1); PLATELET COUNT 475 10^3/uL (134-434); RBC 2.61 M/mm3 (3.60-5.2); WHITE BLOOD COUNT 16.5 K/mm3 (4.0-10.0)
[2024-06-15 10:21] LABS: POTASSIUM 3.8 mmol/L (3.5-5.1)
[2024-06-15] MEDS ORDERED: INSULIN ASPART SLIDING SCALE (NOVOLOG) 1 VIAL SQ ONE (10:24)
[2024-06-15] MEDS ORDERED: INSULIN (LEVEMIR) 100 UNITS/ML UNITS SQ ONE (10:24)
[2024-06-15 10:35] LABS: BLOOD UREA NITROGEN 43.8 mg/dL (7-18)
[2024-06-15 10:36] LABS: CALCIUM 8.8 mg/dL (8.5-10.1)
[2024-06-15 10:37] LABS: MAGNESIUM 2.2 mg/dL (1.8-2.4)
[2024-06-15 10:38] LABS: CREATININE 1.8 mg/dL (0.55-1.3); PHOSPHOROUS 2.1 mg/dL (2.5-4.9)
[2024-06-15 10:39] LABS: BILIRUBIN,TOTAL 0.6 mg/dL (0.2-1); TOT PROT 5.8 g/dl (6.4-8.2)
[2024-06-15] MEDS: INSULIN (LEVEMIR) 100 UNITS/ML UNITS SQ SCH (22:43)
[2024-06-16] MEDS ORDERED: SODIUM CHLORIDE 250 ML IV PRN (07:34)
[2024-06-16 09:40] LABS: MCH 28.6 pg (25.7-33.7); MCHC 32.4 g/dl (32.0-36.0); MEAN CELL VOLUME 88.5 fl (80-96); MEAN PLT VOLUME 7.3 fl (7.5-11.1); PLATELET COUNT 434 10^3/uL (134-434); RBC 2.38 M/mm3 (3.60-5.2); WHITE BLOOD COUNT 13.7 K/mm3 (4.0-10.0)
[2024-06-16 09:48] LABS: HEMOGLOBIN 6.8 GM/dL (10.7-15.3)
[2024-06-16 09:54] LABS: POTASSIUM 3.8 mmol/L (3.5-5.1)
[2024-06-16 09:56] LABS: CALCIUM 8.6 mg/dL (8.5-10.1)
[2024-06-16 09:57] LABS: ALBUMIN 0.9 g/dl (3.4-5.0); BLOOD UREA NITROGEN 55.8 mg/dL (7-18); MAGNESIUM 2.2 mg/dL (1.8-2.4)
[2024-06-16 10:00] LABS: CREATININE 2.1 mg/dL (0.55-1.3); PHOSPHOROUS 2.3 mg/dL (2.5-4.9)
[2024-06-16 10:01] LABS: BILIRUBIN,TOTAL 0.5 mg/dL (0.2-1)
[2024-06-16 10:02] LABS: TOT PROT 5.2 g/dl (6.4-8.2)
[2024-06-16 10:05] LABS: HEMATOCRIT 23.2 % (32.4-45.2); HEMOGLOBIN 7.4 GM/dL (10.7-15.3); MCH 27.7 pg (25.7-33.7); MCHC 31.7 g/dl (32.0-36.0); MEAN CELL VOLUME 87.4 fl (80-96); PLATELET COUNT 499 10^3/uL (134-434); RBC 2.66 M/mm3 (3.60-5.2); RDW 20.6 % (11.6-15.6); WHITE BLOOD COUNT 12.8 K/mm3 (4.0-10.0)
[2024-06-16] MEDS: EPOETIN ALFA-EPBX 10,000 UNIT/ML VIAL IVPUSH ONE (11:01)
[2024-06-16] MEDS ORDERED: INSULIN (LEVEMIR) 100 UNITS/ML UNITS SQ ONE (17:04)
[2024-06-16] MEDS ORDERED: INSULIN ASPART SLIDING SCALE (NOVOLOG) 1 VIAL SQ ONE (17:05)
[2024-06-17 08:37] LABS: BASO % 0.6 % (0-2.0); EOS % 4.5 % (0-4.5); HEMATOCRIT 23.5 % (32.4-45.2); HEMOGLOBIN 7.5 GM/dL (10.7-15.3); LYMPH % 8.8 % (8-40); MCH 28.2 pg (25.7-33.7); MEAN CELL VOLUME 88.2 fl (80-96); MEAN PLT VOLUME 7.4 fl (7.5-11.1); MONO % 14.8 % (3.8-10.2); NEUT % 71.3 % (42.8-82.8); PLATELET COUNT 467 10^3/uL (134-434); RBC 2.67 M/mm3 (3.60-5.2); RDW 20.9 % (11.6-15.6); WHITE BLOOD COUNT 13.9 K/mm3 (4.0-10.0)
[2024-06-17 08:42] LABS: POTASSIUM 3.7 mmol/L (3.5-5.1)
[2024-06-17 08:45] LABS: CALCIUM 8.4 mg/dL (8.5-10.1)
[2024-06-17 08:46] LABS: BLOOD UREA NITROGEN 40.6 mg/dL (7-18)
[2024-06-17 08:49] LABS: CREATININE 1.6 mg/dL (0.55-1.3)
[2024-06-17 09:40] LABS: ANISOCYTOSIS 2+; MACROCYTOSIS 0
[2024-06-18 09:43] LABS: BASO % 0.6 % (0-2.0); HEMATOCRIT 22.2 % (32.4-45.2); HEMOGLOBIN 7.1 GM/dL (10.7-15.3); LYMPH % 7.6 % (8-40); MCH 28.3 pg (25.7-33.7); MCHC 32.1 g/dl (32.0-36.0); MEAN CELL VOLUME 88.1 fl (80-96); MEAN PLT VOLUME 7.4 fl (7.5-11.1); MONO % 12.4 % (3.8-10.2); NEUT % 73.4 % (42.8-82.8); PLATELET COUNT 489 10^3/uL (134-434); RBC 2.52 M/mm3 (3.60-5.2); RDW 20.2 % (11.6-15.6); WHITE BLOOD COUNT 15.2 K/mm3 (4.0-10.0)
[2024-06-18 10:00] LABS: POTASSIUM 3.8 mmol/L (3.5-5.1)
[2024-06-18 10:02] LABS: CALCIUM 8.6 mg/dL (8.5-10.1)
[2024-06-19 10:19] LABS: HEMATOCRIT 22.2 % (32.4-45.2); HEMOGLOBIN 7.2 GM/dL (10.7-15.3); MCH 28.5 pg (25.7-33.7); MCHC 32.4 g/dl (32.0-36.0); MEAN CELL VOLUME 87.9 fl (80-96); MEAN PLT VOLUME 7.4 fl (7.5-11.1); PLATELET COUNT 492 10^3/uL (134-434); RBC 2.52 M/mm3 (3.60-5.2); RDW 20.5 % (11.6-15.6); WHITE BLOOD COUNT 16.7 K/mm3 (4.0-10.0)
[2024-06-19] MEDS ORDERED: SODIUM CHLORIDE 250 ML IV PRN (10:30)
[2024-06-19 10:36] LABS: POTASSIUM 4.2 mmol/L (3.5-5.1)
[2024-06-19 10:40] LABS: ALBUMIN 0.9 g/dl (3.4-5.0); BLOOD UREA NITROGEN 69.6 mg/dL (7-18); CALCIUM 8.7 mg/dL (8.5-10.1); MAGNESIUM 2.4 mg/dL (1.8-2.4)
[2024-06-19 10:43] LABS: CREATININE 2.6 mg/dL (0.55-1.3)
[2024-06-19 10:45] LABS: BILIRUBIN,TOTAL 0.6 mg/dL (0.2-1); TOT PROT 5.4 g/dl (6.4-8.2)
[2024-06-19] MEDS: EPOETIN ALFA-EPBX 4,000 UNIT/ML VIAL SQ ONE (13:33)
[2024-06-20 09:27] LABS: HEMATOCRIT 25.5 % (32.4-45.2); HEMOGLOBIN 8.2 GM/dL (10.7-15.3); MCH 27.9 pg (25.7-33.7); MEAN PLT VOLUME 7.6 fl (7.5-11.1); PLATELET COUNT 474 10^3/uL (134-434); RBC 2.93 M/mm3 (3.60-5.2); RDW 18.6 % (11.6-15.6); WHITE BLOOD COUNT 14.5 K/mm3 (4.0-10.0)
[2024-06-20 09:41] LABS: POTASSIUM 3.8 mmol/L (3.5-5.1)
[2024-06-20 09:51] LABS: BLOOD UREA NITROGEN 46.2 mg/dL (7-18); CALCIUM 8.6 mg/dL (8.5-10.1)
[2024-06-20 09:53] LABS: MAGNESIUM 2.2 mg/dL (1.8-2.4)
[2024-06-20 09:54] LABS: PHOSPHOROUS 2.3 mg/dL (2.5-4.9)
[2024-06-20 09:55] LABS: BILIRUBIN,TOTAL 0.6 mg/dL (0.2-1)
[2024-06-20] MEDS: INSULIN ASPART SLIDING SCALE (NOVOLOG) 1 VIAL SQ SCH (12:18)
[2024-06-20] MEDS ORDERED: SODIUM CHLORIDE 250 ML IV PRN (12:38)
[2024-06-20] MEDS: MEROPENEM 500 MG in DEXTROSE 5%-WATER 100 ML IVPB SCH (17:41)
[2024-06-20] MEDS: LINEZOLID 600 MG PREMIX BAG 600 MG/300 ML BAG IVPB SCH (18:28)
[2024-06-21] MEDS: ALBUMIN HUMAN 25% 12.5 GM/50 ML VIAL IV SCH (09:15)
[2024-06-21 09:17] LABS: HEMATOCRIT 26.2 % (32.4-45.2); HEMOGLOBIN 8.5 GM/dL (10.7-15.3); MCH 28.3 pg (25.7-33.7); MCHC 32.4 g/dl (32.0-36.0); MEAN CELL VOLUME 87.5 fl (80-96); MEAN PLT VOLUME 7.6 fl (7.5-11.1); PLATELET COUNT 502 10^3/uL (134-434); RDW 18.6 % (11.6-15.6); WHITE BLOOD COUNT 16.4 K/mm3 (4.0-10.0)
[2024-06-21 09:40] LABS: POTASSIUM 4.2 mmol/L (3.5-5.1)
[2024-06-21 09:47] LABS: CALCIUM 8.7 mg/dL (8.5-10.1)
[2024-06-21 09:48] LABS: BLOOD UREA NITROGEN 60.1 mg/dL (7-18); MAGNESIUM 2.3 mg/dL (1.8-2.4)
[2024-06-21 09:51] LABS: CREATININE 2.3 mg/dL (0.55-1.3); PHOSPHOROUS 2.6 mg/dL (2.5-4.9)
[2024-06-21] MEDS: EPOETIN ALFA-EPBX 10,000 UNIT, EPOETIN ALFA-EPBX 2,000 UNIT IVPUSH ONE (11:53)
[2024-06-21] MEDS ORDERED: EPOETIN ALFA-EPBX 10,000 UNIT/ML VIAL SQ ONE (12:38)
[2024-06-22 09:08] LABS: POTASSIUM 3.7 mmol/L (3.5-5.1)
[2024-06-22 09:09] LABS: BASO % 0.7 % (0-2.0); EOS % 5.2 % (0-4.5); HEMATOCRIT 23.6 % (32.4-45.2); HEMOGLOBIN 7.6 GM/dL (10.7-15.3); LYMPH % 7.1 % (8-40); MCH 28.2 pg (25.7-33.7); MCHC 32.4 g/dl (32.0-36.0); MEAN CELL VOLUME 87.1 fl (80-96); MEAN PLT VOLUME 7.6 fl (7.5-11.1); MONO % 13.2 % (3.8-10.2); NEUT % 73.8 % (42.8-82.8); PLATELET COUNT 424 10^3/uL (134-434); RBC 2.71 M/mm3 (3.60-5.2); RDW 18.7 % (11.6-15.6); WHITE BLOOD COUNT 11.8 K/mm3 (4.0-10.0)
[2024-06-22 09:10] LABS: BLOOD UREA NITROGEN 40.2 mg/dL (7-18); CALCIUM 8.7 mg/dL (8.5-10.1); MAGNESIUM 2.2 mg/dL (1.8-2.4)
[2024-06-22 09:13] LABS: CREATININE 1.8 mg/dL (0.55-1.3)
[2024-06-22 09:14] LABS: PHOSPHOROUS 2.1 mg/dL (2.5-4.9)
[2024-06-22 09:15] LABS: BILIRUBIN,TOTAL 0.6 mg/dL (0.2-1); TOT PROT 5.4 g/dl (6.4-8.2)
[2024-06-22] MEDS ORDERED: SODIUM CHLORIDE 250 ML IV PRN (12:15)
[2024-06-22] MEDS: ALBUMIN HUMAN 25% 12.5 GM/50 ML VIAL IV SCH (12:45)
[2024-06-22] MEDS: EPOETIN ALFA-EPBX 4,000 UNIT, EPOETIN ALFA-EPBX 10,000 UNIT SQ ONE (15:43)
[2024-06-23] MEDS ORDERED: oxyCODONE HCL 5 MG TABLET PO PRN (15:21)
[2024-06-23] MEDS ORDERED: oxyCODONE HCL 5 MG TABLET GT PRN (15:24)
[2024-06-24 11:10] LABS: HEMATOCRIT 23.9 % (32.4-45.2); HEMOGLOBIN 7.5 GM/dL (10.7-15.3); MCH 27.6 pg (25.7-33.7); MCHC 31.4 g/dl (32.0-36.0); MEAN CELL VOLUME 88.1 fl (80-96); MEAN PLT VOLUME 7.4 fl (7.5-11.1); PLATELET COUNT 493 10^3/uL (134-434); RBC 2.72 M/mm3 (3.60-5.2); WHITE BLOOD COUNT 15.2 K/mm3 (4.0-10.0)
[2024-06-24 11:31] LABS: POTASSIUM 4.2 mmol/L (3.5-5.1)
[2024-06-24 11:41] LABS: CALCIUM 8.8 mg/dL (8.5-10.1)
[2024-06-24 11:42] LABS: ALBUMIN 1.1 g/dl (3.4-5.0); MAGNESIUM 2.1 mg/dL (1.8-2.4)
[2024-06-24 11:43] LABS: BLOOD UREA NITROGEN 43.4 mg/dL (7-18)
[2024-06-24 11:45] LABS: CREATININE 1.9 mg/dL (0.55-1.3); PHOSPHOROUS 2.4 mg/dL (2.5-4.9)
[2024-06-24 11:46] LABS: BILIRUBIN,TOTAL 0.7 mg/dL (0.2-1); TOT PROT 5.8 g/dl (6.4-8.2)
[2024-06-25] MEDS: EPOETIN ALFA-EPBX 10,000 UNIT/ML VIAL SQ ONE (09:03)
[2024-06-25] MEDS ORDERED: SODIUM CHLORIDE 250 ML IV PRN (14:35)
[2024-06-25] MEDS ORDERED: NAPH,MB-DB/K PH,MBDB POWDER PACKET PO ONE (15:30)
[2024-06-25] MEDS: NAPH,MB-DB/K PH,MBDB POWDER PACKET GT ONE (17:01)
[2024-06-26 10:20] LABS: MAGNESIUM 2.2 mg/dL (1.8-2.4)
[2024-06-26 10:23] LABS: PHOSPHOROUS 3.6 mg/dL (2.5-4.9)
[2024-06-26] MEDS ORDERED: EPOETIN ALFA-EPBX 10,000 UNIT/ML VIAL SQ ONE (14:35)
[2024-06-26] MEDS: HEPARIN NA (PORCINE) 5,000 UNITS/ML 1ML VIAL IVPUSH ONE (16:51)
[2024-06-26] MEDS: ALBUMIN HUMAN 25% 12.5 GM/50 ML VIAL IV SCH (17:15)
[2024-06-26 17:21] LABS: HEMATOCRIT 21.4 % (32.4-45.2); HEMOGLOBIN 7.1 GM/dL (10.7-15.3); MCH 28.6 pg (25.7-33.7); MCHC 33.2 g/dl (32.0-36.0); MEAN CELL VOLUME 86.1 fl (80-96); MEAN PLT VOLUME 7.2 fl (7.5-11.1); PLATELET COUNT 568 10^3/uL (134-434); RBC 2.49 M/mm3 (3.60-5.2); WHITE BLOOD COUNT 12.6 K/mm3 (4.0-10.0)
[2024-06-26 17:47] LABS: POTASSIUM 4.8 mmol/L (3.5-5.1)
[2024-06-26 17:49] LABS: CALCIUM 8.8 mg/dL (8.5-10.1)
[2024-06-26 17:50] LABS: ALBUMIN 1.1 g/dl (3.4-5.0)
[2024-06-26 17:53] LABS: CREATININE 2.7 mg/dL (0.55-1.3)
[2024-06-26 17:54] LABS: BILIRUBIN,TOTAL 0.6 mg/dL (0.2-1)
[2024-06-26 17:55] LABS: TOT PROT 5.8 g/dl (6.4-8.2)
[2024-06-26] MEDS: EPOETIN ALFA-EPBX 4,000 UNIT, EPOETIN ALFA-EPBX 10,000 UNIT SQ ONE (19:32)
[2024-06-27 09:46] LABS: HEMATOCRIT 21.7 % (32.4-45.2); HEMOGLOBIN 7.1 GM/dL (10.7-15.3); MCH 28.5 pg (25.7-33.7); MCHC 32.5 g/dl (32.0-36.0); MEAN CELL VOLUME 87.7 fl (80-96); MEAN PLT VOLUME 7.3 fl (7.5-11.1); PLATELET COUNT 497 10^3/uL (134-434); RBC 2.48 M/mm3 (3.60-5.2); RDW 17.9 % (11.6-15.6); WHITE BLOOD COUNT 11.6 K/mm3 (4.0-10.0)
[2024-06-27 10:05] LABS: CALCIUM 8.5 mg/dL (8.5-10.1)
[2024-06-27 10:06] LABS: MAGNESIUM 1.9 mg/dL (1.8-2.4)
[2024-06-27 10:09] LABS: CREATININE 1.7 mg/dL (0.55-1.3); PHOSPHOROUS 2.2 mg/dL (2.5-4.9)
[2024-06-27 10:10] LABS: TOT PROT 5.9 g/dl (6.4-8.2)
[2024-06-27 10:13] LABS: BILIRUBIN,TOTAL 0.9 mg/dL (0.2-1)
[2024-06-27 10:21] LABS: ALBUMIN 1.3 g/dl (3.4-5.0)
[2024-06-28] MEDS ORDERED: SODIUM CHLORIDE 250 ML IV PRN (08:24)
[2024-06-28 09:02] LABS: HEMATOCRIT 21.2 % (32.4-45.2); MCH 28.5 pg (25.7-33.7); MCHC 32.8 g/dl (32.0-36.0); MEAN CELL VOLUME 86.7 fl (80-96); PLATELET COUNT 566 10^3/uL (134-434); RBC 2.45 M/mm3 (3.60-5.2); WHITE BLOOD COUNT 16.3 K/mm3 (4.0-10.0)
[2024-06-28 09:21] LABS: MAGNESIUM 2.1 mg/dL (1.8-2.4); POTASSIUM 4.3 mmol/L (3.5-5.1)
[2024-06-28 09:25] LABS: ALBUMIN 1.3 g/dl (3.4-5.0); CALCIUM 8.7 mg/dL (8.5-10.1); PHOSPHOROUS 2.5 mg/dL (2.5-4.9)
[2024-06-28 09:30] LABS: BILIRUBIN,TOTAL 0.6 mg/dL (0.2-1); TOT PROT 6.1 g/dl (6.4-8.2)
[2024-06-28] MEDS: EPOETIN ALFA-EPBX 10,000 UNIT, EPOETIN ALFA-EPBX 4,000 UNIT SQ ONE (09:38)
[2024-06-28] MEDS: ALBUMIN HUMAN 25% 12.5 GM/50 ML VIAL IV SCH (10:00)
[2024-06-28] MEDS ORDERED: EPOETIN ALFA-EPBX 10,000 UNIT/ML VIAL SQ ONE (12:47)
[2024-06-28] MEDS: HEPARIN NA (PORCINE) 5,000 UNITS/ML 1ML VIAL IVPUSH SCH (12:50)
[2024-06-29 07:43] LABS: POTASSIUM 3.9 mmol/L (3.5-5.1)
[2024-06-29 07:44] LABS: CALCIUM 8.5 mg/dL (8.5-10.1)
[2024-06-29 07:45] LABS: ALBUMIN 1.2 g/dl (3.4-5.0); BLOOD UREA NITROGEN 34.5 mg/dL (7-18)
[2024-06-29 07:48] LABS: CREATININE 1.5 mg/dL (0.55-1.3); PHOSPHOROUS 2.1 mg/dL (2.5-4.9)
[2024-06-29 07:49] LABS: BILIRUBIN,TOTAL 0.5 mg/dL (0.2-1); TOT PROT 5.7 g/dl (6.4-8.2)
[2024-06-29] MEDS: NAPH,MB-DB/K PH,MBDB POWDER PACKET PO ONE ×2 (16:58→17:26)
[2024-06-30] MEDS ORDERED: SODIUM CHLORIDE 250 ML IV PRN (09:00)
[2024-06-30] MEDS: EPOETIN ALFA-EPBX 20,000 UNIT/ML VIAL SQ ONE (09:11)
[2024-06-30 09:50] LABS: HEMATOCRIT 21.9 % (32.4-45.2); HEMOGLOBIN 7.2 GM/dL (10.7-15.3); MCH 28.2 pg (25.7-33.7); MCHC 32.8 g/dl (32.0-36.0); MEAN CELL VOLUME 86.2 fl (80-96); MEAN PLT VOLUME 7.1 fl (7.5-11.1); PLATELET COUNT 536 10^3/uL (134-434); RBC 2.54 M/mm3 (3.60-5.2); RDW 17.2 % (11.6-15.6); WHITE BLOOD COUNT 14.8 K/mm3 (4.0-10.0)
[2024-06-30] MEDS: ALBUMIN HUMAN 25% 12.5 GM/50 ML VIAL IV SCH (12:43)
[2024-07-01 10:28] LABS: HEMATOCRIT 24.6 % (32.4-45.2); MCH 28.3 pg (25.7-33.7); MCHC 32.5 g/dl (32.0-36.0); MEAN CELL VOLUME 87.2 fl (80-96); MEAN PLT VOLUME 6.9 fl (7.5-11.1); PLATELET COUNT 521 10^3/uL (134-434); RBC 2.82 M/mm3 (3.60-5.2); RDW 17.5 % (11.6-15.6); WHITE BLOOD COUNT 13.7 K/mm3 (4.0-10.0)
[2024-07-01 11:03] LABS: MAGNESIUM 1.9 mg/dL (1.8-2.4)
[2024-07-01 11:08] LABS: PHOSPHOROUS 2.2 mg/dL (2.5-4.9)
[2024-07-03] MEDS: DEXTROSE 50%-WATER 25 GM/50 ML DISP.SYRIN IVPUSH PRN (05:50)
[2024-07-03] MEDS ORDERED: EPOETIN ALFA-EPBX 10,000 UNIT/ML VIAL SQ ONE (11:34)
[2024-07-03] MEDS ORDERED: SODIUM CHLORIDE 250 ML IV PRN (11:34)
[2024-07-03 11:49] LABS: HEMOGLOBIN 7.1 GM/dL (10.7-15.3); MCH 28.1 pg (25.7-33.7); MCHC 32.5 g/dl (32.0-36.0); MEAN CELL VOLUME 86.4 fl (80-96); MEAN PLT VOLUME 6.9 fl (7.5-11.1); PLATELET COUNT 505 10^3/uL (134-434); RBC 2.55 M/mm3 (3.60-5.2); RDW 17.3 % (11.6-15.6); WHITE BLOOD COUNT 12.4 K/mm3 (4.0-10.0)
[2024-07-03] MEDS: SODIUM HYPOCHLORITE 0.5% 473 ML- BULK BOTTLE TP SCH (12:00)
[2024-07-03 12:08] LABS: POTASSIUM 4.3 mmol/L (3.5-5.1)
[2024-07-03 12:10] LABS: ALBUMIN 1.1 g/dl (3.4-5.0); CALCIUM 8.7 mg/dL (8.5-10.1)
[2024-07-03 12:13] LABS: CREATININE 2.3 mg/dL (0.55-1.3)
[2024-07-03 12:15] LABS: BILIRUBIN,TOTAL 0.5 mg/dL (0.2-1); TOT PROT 5.7 g/dl (6.4-8.2)
[2024-07-03 12:19] LABS: BLOOD UREA NITROGEN 60.2 mg/dL (7-18)
[2024-07-03] MEDS: EPOETIN ALFA EPBX IVPUSH ONE (12:44)
[2024-07-03] MEDS: [UNRECOGNIZED DRUG - OTHER] IVPUSH ONE (12:44)
[2024-07-03] MEDS: HEPARIN NA (PORCINE) 5,000 UNITS/ML 1ML VIAL IVPUSH ONE (12:45)
[2024-07-03] MEDS: ALBUMIN HUMAN 25% 12.5 GM/50 ML VIAL IV SCH (12:45)
[2024-07-04 10:21] LABS: HEMATOCRIT 23.1 % (32.4-45.2); HEMOGLOBIN 7.5 GM/dL (10.7-15.3); MCH 28.2 pg (25.7-33.7); MCHC 32.3 g/dl (32.0-36.0); MEAN CELL VOLUME 87.1 fl (80-96); MEAN PLT VOLUME 6.7 fl (7.5-11.1); PLATELET COUNT 502 10^3/uL (134-434); RBC 2.65 M/mm3 (3.60-5.2); RDW 17.3 % (11.6-15.6); WHITE BLOOD COUNT 12.4 K/mm3 (4.0-10.0)
[2024-07-04 11:00] LABS: CALCIUM 8.9 mg/dL (8.5-10.1)
[2024-07-04 11:01] LABS: ALBUMIN 1.2 g/dl (3.4-5.0); BLOOD UREA NITROGEN 38.1 mg/dL (7-18)
[2024-07-04 11:04] LABS: CREATININE 1.5 mg/dL (0.55-1.3)
[2024-07-04 11:05] LABS: BILIRUBIN,TOTAL 0.6 mg/dL (0.2-1)
[2024-07-04] MEDS ORDERED: SODIUM CHLORIDE 250 ML IV PRN (11:29)
[2024-07-04 11:49] LABS: POTASSIUM 4.1 mmol/L (3.5-5.1)
[2024-07-04 11:51] LABS: CALCIUM 8.9 mg/dL (8.5-10.1)
[2024-07-04 11:52] LABS: ALBUMIN 1.2 g/dl (3.4-5.0); BLOOD UREA NITROGEN 37.2 mg/dL (7-18); MAGNESIUM 2.2 mg/dL (1.8-2.4)
[2024-07-04 11:55] LABS: CREATININE 1.5 mg/dL (0.55-1.3)
[2024-07-04 11:56] LABS: BILIRUBIN,TOTAL 0.5 mg/dL (0.2-1); TOT PROT 5.9 g/dl (6.4-8.2)
[2024-07-05 08:42] LABS: HEMATOCRIT 24.1 % (32.4-45.2); HEMOGLOBIN 7.8 GM/dL (10.7-15.3); MCH 28.5 pg (25.7-33.7); MCHC 32.2 g/dl (32.0-36.0); MEAN CELL VOLUME 88.5 fl (80-96); MEAN PLT VOLUME 6.5 fl (7.5-11.1); PLATELET COUNT 509 10^3/uL (134-434); RBC 2.72 M/mm3 (3.60-5.2); RDW 17.8 % (11.6-15.6); WHITE BLOOD COUNT 11.6 K/mm3 (4.0-10.0)
[2024-07-05 09:03] LABS: POTASSIUM 4.3 mmol/L (3.5-5.1)
[2024-07-05 09:08] LABS: MAGNESIUM 2.3 mg/dL (1.8-2.4)
[2024-07-05 09:09] LABS: ALBUMIN 1.2 g/dl (3.4-5.0); CALCIUM 9.3 mg/dL (8.5-10.1)
[2024-07-05 09:10] LABS: BLOOD UREA NITROGEN 53.6 mg/dL (7-18)
[2024-07-05 09:12] LABS: PHOSPHOROUS 2.4 mg/dL (2.5-4.9)
[2024-07-05 09:14] LABS: BILIRUBIN,TOTAL 0.5 mg/dL (0.2-1); CREATININE 1.9 mg/dL (0.55-1.3); TOT PROT 6.2 g/dl (6.4-8.2)
[2024-07-05] MEDS ORDERED: EPOETIN ALFA-EPBX 20,000 UNIT/ML VIAL SQ ONE (11:29)
[2024-07-05] MEDS: HEPARIN NA (PORCINE) 5,000 UNITS/ML 1ML VIAL IVPUSH ONE (11:38)
[2024-07-05] MEDS: EPOETIN ALFA EPBX IVPUSH ONE (11:38)
[2024-07-07] MEDS: AMINO ACIDS/PROTEIN HYDROLYS 30 ML LIQUID.PKT GT SCH (08:39)
[2024-07-07] MEDS ORDERED: oxyCODONE HCL 5 MG TABLET PO PRN (09:18)
[2024-07-07] MEDS ORDERED: SODIUM CHLORIDE 250 ML IV PRN (10:00)
[2024-07-07 10:57] LABS: HEMATOCRIT 21.5 % (32.4-45.2); MCH 28.8 pg (25.7-33.7); MCHC 32.1 g/dl (32.0-36.0); MEAN CELL VOLUME 89.8 fl (80-96); PLATELET COUNT 506 10^3/uL (134-434); RDW 17.7 % (11.6-15.6)
[2024-07-07 11:02] LABS: HEMOGLOBIN 6.9 GM/dL (10.7-15.3)
[2024-07-07 11:16] LABS: POTASSIUM 4.6 mmol/L (3.5-5.1)
[2024-07-07] MEDS: EPOETIN ALFA EPBX IVPUSH ONE (11:17)
[2024-07-07 11:23] LABS: ALBUMIN 1.3 g/dl (3.4-5.0); CALCIUM 9.2 mg/dL (8.5-10.1)
[2024-07-07 11:24] LABS: BLOOD UREA NITROGEN 54.7 mg/dL (7-18)
[2024-07-07 11:27] LABS: CREATININE 2.2 mg/dL (0.55-1.3)
[2024-07-07 11:28] LABS: BILIRUBIN,TOTAL 0.7 mg/dL (0.2-1); TOT PROT 6.4 g/dl (6.4-8.2)
[2024-07-07] MEDS ORDERED: EPOETIN ALFA-EPBX 20,000 UNIT/ML VIAL IVPUSH ONE (12:32)
[2024-07-08 08:41] LABS: HEMATOCRIT 22.7 % (32.4-45.2); HEMOGLOBIN 7.2 GM/dL (10.7-15.3); MCH 28.2 pg (25.7-33.7); MCHC 31.7 g/dl (32.0-36.0); MEAN CELL VOLUME 88.8 fl (80-96); MEAN PLT VOLUME 7.3 fl (7.5-11.1); PLATELET COUNT 441 10^3/uL (134-434); RBC 2.56 M/mm3 (3.60-5.2); WHITE BLOOD COUNT 15.3 K/mm3 (4.0-10.0)
[2024-07-08 09:08] LABS: CALCIUM 8.9 mg/dL (8.5-10.1)
[2024-07-08 09:09] LABS: ALBUMIN 1.3 g/dl (3.4-5.0); BLOOD UREA NITROGEN 38.6 mg/dL (7-18)
[2024-07-08 09:12] LABS: CREATININE 1.7 mg/dL (0.55-1.3); PHOSPHOROUS 2.2 mg/dL (2.5-4.9)
[2024-07-08 09:14] LABS: BILIRUBIN,TOTAL 0.4 mg/dL (0.2-1); TOT PROT 6.4 g/dl (6.4-8.2)
[2024-07-08] MEDS: FAMOTIDINE 20 MG/2.5 ML ORAL LIQUID GT SCH (10:23)
[2024-07-09] MEDS: oxyCODONE HCL 5 MG TABLET GT PRN (06:33)
[2024-07-10] MEDS ORDERED: SODIUM CHLORIDE 250 ML IV PRN ×2 (07:57→13:29)
[2024-07-10] MEDS ORDERED: EPOETIN ALFA-EPBX 20,000 UNIT/ML VIAL IVPUSH ONE (08:00)
[2024-07-10 08:50] LABS: BASO % 0.5 % (0-2.0); EOS % 4.6 % (0-4.5); HEMATOCRIT 21.9 % (32.4-45.2); MCH 27.7 pg (25.7-33.7); MCHC 31.4 g/dl (32.0-36.0); MEAN CELL VOLUME 88.3 fl (80-96); MEAN PLT VOLUME 7.4 fl (7.5-11.1); MONO % 12.3 % (3.8-10.2); NEUT % 69.6 % (42.8-82.8); PLATELET COUNT 480 10^3/uL (134-434); RBC 2.47 M/mm3 (3.60-5.2); RDW 17.8 % (11.6-15.6); WHITE BLOOD COUNT 11.5 K/mm3 (4.0-10.0)
[2024-07-10 09:20] LABS: HEMOGLOBIN 6.9 GM/dL (10.7-15.3)
[2024-07-10] MEDS: EPOETIN ALFA-EPBX 20,000 UNIT/ML VIAL SQ ONE (09:31)
[2024-07-10 09:50] LABS: HEMATOCRIT 19.4 % (32.4-45.2); MCH 28.3 pg (25.7-33.7); MCHC 32.2 g/dl (32.0-36.0); MEAN CELL VOLUME 87.8 fl (80-96); MEAN PLT VOLUME 7.5 fl (7.5-11.1); PLATELET COUNT 471 10^3/uL (134-434); RBC 2.21 M/mm3 (3.60-5.2); RDW 17.4 % (11.6-15.6); WHITE BLOOD COUNT 11.5 K/mm3 (4.0-10.0)
[2024-07-10 10:01] LABS: HEMOGLOBIN 6.2 GM/dL (10.7-15.3)
[2024-07-10 10:14] LABS: POTASSIUM 4.2 mmol/L (3.5-5.1)
[2024-07-10 10:16] LABS: ALBUMIN 1.2 g/dl (3.4-5.0); CALCIUM 9.2 mg/dL (8.5-10.1)
[2024-07-10 10:19] LABS: CREATININE 2.7 mg/dL (0.55-1.3)
[2024-07-10 10:21] LABS: BILIRUBIN,TOTAL 0.4 mg/dL (0.2-1); TOT PROT 5.9 g/dl (6.4-8.2)
[2024-07-10 10:30] LABS: BLOOD UREA NITROGEN 76.8 mg/dL (7-18)
[2024-07-11 09:48] LABS: MCH 28.1 pg (25.7-33.7); MEAN CELL VOLUME 87.9 fl (80-96); MEAN PLT VOLUME 7.5 fl (7.5-11.1); PLATELET COUNT 483 10^3/uL (134-434); RBC 2.27 M/mm3 (3.60-5.2); RDW 18.1 % (11.6-15.6); WHITE BLOOD COUNT 11.5 K/mm3 (4.0-10.0)
[2024-07-11 09:51] LABS: HEMOGLOBIN 6.4 GM/dL (10.7-15.3)
[2024-07-11 10:05] LABS: POTASSIUM 4.1 mmol/L (3.5-5.1)
[2024-07-11 10:07] LABS: CALCIUM 9.3 mg/dL (8.5-10.1)
[2024-07-11 10:08] LABS: ALBUMIN 1.2 g/dl (3.4-5.0); BLOOD UREA NITROGEN 65.4 mg/dL (7-18)
[2024-07-11 10:10] LABS: CREATININE 2.2 mg/dL (0.55-1.3)
[2024-07-11 10:12] LABS: BILIRUBIN,TOTAL 0.3 mg/dL (0.2-1); TOT PROT 6.3 g/dl (6.4-8.2)
[2024-07-11] MEDS ORDERED: EPOETIN ALFA-EPBX 20,000 UNIT/ML VIAL SQ ONE (13:29)
[2024-07-11] MEDS ORDERED: HEPARIN NA (PORCINE) 5,000 UNITS/ML 1ML VIAL IVPUSH ONE (13:29)
[2024-07-12 10:08] LABS: HEMATOCRIT 25.4 % (32.4-45.2); HEMOGLOBIN 8.2 GM/dL (10.7-15.3); MCHC 32.1 g/dl (32.0-36.0); MEAN CELL VOLUME 87.2 fl (80-96); MEAN PLT VOLUME 7.7 fl (7.5-11.1); PLATELET COUNT 410 10^3/uL (134-434); RBC 2.91 M/mm3 (3.60-5.2); WHITE BLOOD COUNT 14.5 K/mm3 (4.0-10.0)
[2024-07-12] MEDS ORDERED: SODIUM CHLORIDE 250 ML IV PRN (17:03)
[2024-07-12 17:39] LABS: EPI CELLS >36 /uL (0-25.1); HYALINE CASTS 1 /uL (0-3.1); PH,URINE 5.5 (5.0-8.0); URINE APPEARANCE TURBID; URINE BACTERIA 288 /uL (0-1359); URINE BILIRUBIN 1+ (NEGATIVE); URINE COLOR DK YELLOW; URINE GLUCOSE (UA) NEGATIVE (NEGATIVE); URINE KETONE NEGATIVE (NEGATIVE); URINE LEUK ESTERASE 3+ (NEGATIVE); URINE NITRITE NEGATIVE (NEGATIVE); URINE PROTEIN 1+ (NEGATIVE); URINE WBC 11669 /uL (0-25.8)
[2024-07-12] MEDS: MEROPENEM 1 GM in DEXTROSE 5%-WATER 100 ML IVPB ONE (17:52)
[2024-07-12 19:50] LABS: URINE RBC 225.4 /uL (0-23.9)
[2024-07-13] MEDS: LINEZOLID 600 MG PREMIX BAG 600 MG/300 ML BAG IVPB SCH (11:00)
[2024-07-13] MEDS: HEPARIN NA (PORCINE) 5,000 UNITS/ML 1ML VIAL IVPUSH ONE (11:38)
[2024-07-13] MEDS: EPOETIN ALFA-EPBX 20,000 UNIT/ML VIAL SQ ONE (11:39)
[2024-07-13 11:47] LABS: HEMATOCRIT 22.9 % (32.4-45.2); HEMOGLOBIN 7.4 GM/dL (10.7-15.3); MCHC 32.2 g/dl (32.0-36.0); MEAN PLT VOLUME 8.1 fl (7.5-11.1); PLATELET COUNT 475 10^3/uL (134-434); RBC 2.63 M/mm3 (3.60-5.2); RDW 16.7 % (11.6-15.6); WHITE BLOOD COUNT 14.1 K/mm3 (4.0-10.0)
[2024-07-13 12:06] LABS: POTASSIUM 3.7 mmol/L (3.5-5.1)
[2024-07-13 12:09] LABS: ALBUMIN 1.3 g/dl (3.4-5.0); BLOOD UREA NITROGEN 77.3 mg/dL (7-18); CALCIUM 9.5 mg/dL (8.5-10.1)
[2024-07-13 12:13] LABS: CREATININE 2.7 mg/dL (0.55-1.3)
[2024-07-13 12:14] LABS: BILIRUBIN,TOTAL 0.4 mg/dL (0.2-1); TOT PROT 6.4 g/dl (6.4-8.2)
[2024-07-13] MEDS: MEROPENEM 500 MG in DEXTROSE 5%-WATER 100 ML IVPB SCH (14:19)
[2024-07-14 01:24] LABS: BASO % 0.3 % (0-2.0); HEMATOCRIT 24.6 % (32.4-45.2); HEMOGLOBIN 7.9 GM/dL (10.7-15.3); LYMPH % 7.9 % (8-40); MCH 27.8 pg (25.7-33.7); MCHC 32.2 g/dl (32.0-36.0); MEAN CELL VOLUME 86.4 fl (80-96); NEUT % 75.8 % (42.8-82.8); PLATELET COUNT 430 10^3/uL (134-434); RBC 2.85 M/mm3 (3.60-5.2); RDW 16.6 % (11.6-15.6); WHITE BLOOD COUNT 14.1 K/mm3 (4.0-10.0)
[2024-07-14 09:25] LABS: POTASSIUM 3.8 mmol/L (3.5-5.1)
[2024-07-14 09:28] LABS: HEMATOCRIT 24.6 % (32.4-45.2); MCH 28.3 pg (25.7-33.7); MCHC 32.4 g/dl (32.0-36.0); MEAN CELL VOLUME 87.4 fl (80-96); MEAN PLT VOLUME 8.2 fl (7.5-11.1); PLATELET COUNT 430 10^3/uL (134-434); RBC 2.82 M/mm3 (3.60-5.2); RDW 16.7 % (11.6-15.6); WHITE BLOOD COUNT 16.9 K/mm3 (4.0-10.0)
[2024-07-14 10:46] LABS: CALCIUM 9.5 mg/dL (8.5-10.1)
[2024-07-14 10:47] LABS: ALBUMIN 1.3 g/dl (3.4-5.0); BLOOD UREA NITROGEN 53.6 mg/dL (7-18)
[2024-07-14 10:49] LABS: CREATININE 2.1 mg/dL (0.55-1.3)
[2024-07-14 10:51] LABS: TOT PROT 6.7 g/dl (6.4-8.2)
[2024-07-14 10:59] LABS: BILIRUBIN,TOTAL 0.4 mg/dL (0.2-1)
[2024-07-14] MEDS: SODIUM CHLORIDE 1,000 ML IV STA (13:04)
[2024-07-15] MEDS ORDERED: SODIUM CHLORIDE 250 ML IV PRN (15:15)
[2024-07-16 10:34] LABS: HEMATOCRIT 18.5 % (32.4-45.2); MCH 28.5 pg (25.7-33.7); MCHC 32.8 g/dl (32.0-36.0); MEAN CELL VOLUME 86.7 fl (80-96); MEAN PLT VOLUME 8.1 fl (7.5-11.1); PLATELET COUNT 434 10^3/uL (134-434); RBC 2.13 M/mm3 (3.60-5.2); WHITE BLOOD COUNT 10.9 K/mm3 (4.0-10.0)
[2024-07-16 10:51] LABS: POTASSIUM 3.9 mmol/L (3.5-5.1)
[2024-07-16 10:52] LABS: HEMOGLOBIN 6.1 GM/dL (10.7-15.3)
[2024-07-16 10:54] LABS: ALBUMIN 1.2 g/dl (3.4-5.0); CALCIUM 9.4 mg/dL (8.5-10.1)
[2024-07-16 11:00] LABS: BILIRUBIN,TOTAL 0.4 mg/dL (0.2-1); CREATININE 2.8 mg/dL (0.55-1.3); TOT PROT 5.7 g/dl (6.4-8.2)
[2024-07-16 11:01] LABS: BLOOD UREA NITROGEN 82.8 mg/dL (7-18)
[2024-07-16 15:28] VITALS: RESP 18
[2024-07-16] MEDS: EPOETIN ALFA-EPBX 20,000 UNIT/ML VIAL IVPUSH ONE (16:50)
[2024-07-16 18:33] LABS: HEMATOCRIT 27.7 % (32.4-45.2); HEMOGLOBIN 8.9 GM/dL (10.7-15.3); MCHC 32.3 g/dl (32.0-36.0); MEAN CELL VOLUME 86.8 fl (80-96); MEAN PLT VOLUME 7.3 fl (7.5-11.1); PLATELET COUNT 462 10^3/uL (134-434); RBC 3.19 M/mm3 (3.60-5.2); RDW 17.3 % (11.6-15.6); WHITE BLOOD COUNT 11.3 K/mm3 (4.0-10.0)
[2024-07-17 10:20] VITALS: BP 117/55; PULSE 109; TEMP 98.2
== END 2024-07-17 10:56 | DRG 871 ==
LOC: JER 18:26 → JERBED 21:39 → J8W 04-06 03:02 → JICU 05-19 12:15 → J6S 05-21 15:38
PROVIDERS: ADMIT Internal Medicine; ATTEND Internal Medicine
PROC: 30233N1 Transfusion of Nonautologous Red Blood Cells into Peripheral Vein, Percutaneous Approach (ICD-10-PCS; 2024-04-10)
PROC: 05HM33Z Insertion of Infusion Device into Right Internal Jugular Vein, Percutaneous Approach (ICD-10-PCS; 2024-05-04)
PROC: B543ZZA Ultrasonography of Right Jugular Veins, Guidance (ICD-10-PCS; 2024-05-04)
PROC: 05PY33Z Removal of Infusion Device from Upper Vein, Percutaneous Approach (ICD-10-PCS; 2024-05-25)
PROC: 05HM33Z Insertion of Infusion Device into Right Internal Jugular Vein, Percutaneous Approach (ICD-10-PCS; 2024-05-31)
PROC: B543ZZA Ultrasonography of Right Jugular Veins, Guidance (ICD-10-PCS; 2024-05-31)
PROC: 05HY33Z Insertion of Infusion Device into Upper Vein, Percutaneous Approach (ICD-10-PCS; 2024-06-07)
PROC: B518ZZA Fluoroscopy of Superior Vena Cava, Guidance (ICD-10-PCS; 2024-06-07)
PROC: 0JHF0XZ Insertion of Tunneled Vascular Access Device into Left Upper Arm Subcutaneous Tissue and Fascia, Open Approach (ICD-10-PCS; principal; 2024-06-07 16:00)
PROC: 5A1D70Z Performance of Urinary Filtration, Intermittent, Less than 6 Hours Per Day (ICD-10-PCS; 2024-07-16)
DX: A41.89 Other specified sepsis (principal); J15.1 Pneumonia due to Pseudomonas; L89.894 Pressure ulcer of other site, stage 4; L89.014 Pressure ulcer of right elbow, stage 4; J96.01 Acute respiratory failure with hypoxia; L89.154 Pressure ulcer of sacral region, stage 4; N18.6 End stage renal disease; R53.2 Functional quadriplegia; R65.21 Severe sepsis with septic shock; J69.0 Pneumonitis due to inhalation of food and vomit; N39.0 Urinary tract infection, site not specified; M46.28 Osteomyelitis of vertebra, sacral and sacrococcygeal region; E44.0 Moderate protein-calorie malnutrition; E87.1 Hypo-osmolality and hyponatremia; I12.0 Hypertensive chronic kidney disease with stage 5 chronic kidney disease or end stage renal disease; I50.9 Heart failure, unspecified; I48.91 Unspecified atrial fibrillation; F03.90 Unspecified dementia, unspecified severity, without behavioral disturbance, psychotic disturbance, mood disturbance, and anxiety; D63.1 Anemia in chronic kidney disease; Z93.1 Gastrostomy status; L89.610 Pressure ulcer of right heel, unstageable; L89.620 Pressure ulcer of left heel, unstageable; E11.9 Type 2 diabetes mellitus without complications; Z99.2 Dependence on renal dialysis; E78.5 Hyperlipidemia, unspecified; E87.6 Hypokalemia
CPT/HCPCS: 0241U-QW; 36415; 36430; 36511; 36600; 71045-TC-FY; 73630-TC-LT; 73630-TC-RT-FY; 76000-TC-FY; 76705-TC; 80048; 80053; 81003; 82248; 82272; 82728; 82803; 82962; 83010; 83036; 83540; 83550; 83605; 83735; 84100; 84484; 85025; 85027; 85045; 85610; 85730; 86704; 86706; 86803; 86850; 86870; 86880; 86900; 86901; 86902; 86922; 87040; 87070; 87077; 87086; 87186; 87205; 87340; 87517; 87635; 93005; 93010; 93306-TC; 93971; 94640; 94760; 99285-25; C1750; E0186; G0480; J0131; J0885; J1644; J2997; P9038; P9047; P9058; Q5106